=== PATIENT | female | born 1975 | race Caucasian/White ===

== ENCOUNTER 2016-06-28 11:32 | Emergency (ER) | payer MEDICAID ==
[2016-06-28] MEDS ORDERED: ONDANSETRON 4 MG TAB.RAPDIS PO ONE (12:16)
[2016-06-28] MEDS ORDERED: OXYCODONE-ACETAMINOPHEN 5-325 MG TABLET PO ONE (12:16)
--- NOTE | 2016-06-28 12:48 | ER Document Report ---
HPI - HPI Patient complains to provider of: left hand pain, dog bite Onset: Yesterday Onset/Duration: Sudden Severity: Severe Pain Level: 5 Context: [facility] for complaints of a dog bite. She reports her little dog bit her thumb last night when she was trying to break up a fight. The dogs shots up are to date. She reports she went to bed and this morning the thumbs really hurting. She reports she cannot move the thumb due to the pain. Reports her tetanus is up-to-date. Denies f/v/d. Patient drove herself here but will obtain a ride home. Reports tetanus up to date. Associated Symptoms: None Exacerbated by: Movement Relieved by: Denies Similar symptoms previously: No Recently seen / treated by doctor: No - REPRODUCTIVE Reproductive: DENIES: : - DERM Skin Color: Normal Past Medical History - General Information source: Patient Last Menstrual Period: june- depo - Social History Smoking Status: Current Every Day Smoker Cigarette use (# per day): Yes Frequency of alcohol use: None Drug Abuse: None Lives with: Family Family History: Reviewed & Not Pertinent, Hypertension Patient has suicidal ideation: No Patient has homicidal ideation: No - Past Medical History Cardiac Medical History: Reports: Hx Hypertension Renal/ Medical History: Reports: Hx Kidney Stones. Denies: Hx Peritoneal Dialysis Past Surgical History: Reports: Hx Cholecystectomy - Immunizations Immunizations up to date: Yes Hx Diphtheria, Pertussis, Tetanus Vaccination: Yes Vertical Provider Document - CONSTITUTIONAL Agree With Documented VS: Yes Exam Limitations: No Limitations General Appearance: WD/WN, Moderate Distress - crying - INFECTION CONTROL TRAVEL OUTSIDE OF THE [place] IN LAST 30 DAYS: No - HEENT HEENT: Atraumatic, Normocephalic - NECK Neck: Normal Inspection, Supple - RESPIRATORY Respiratory: Breath Sounds Normal, No Respiratory Distress O2 Sat by Pulse Oximetry: 95 - CARDIOVASCULAR Cardiovascular: Regular Rate - MUSCULOSKELETAL/EXTREMETIES Musculoskeletal/Extremeties: MAEW, Tender - left thumb ttp, +erythema - NEURO Level of Consciousness: Awake, Alert, Appropriate - DERM Integumentary: Warm, Dry Course - Re-evaluation Re-evalutation: 06/28/16 13:44 bite avis cleaned really well with surgical scrub brush and normal saline. Animal form completed. Patient instructed on Augmentin pain medication. Patient instructed on signs and symptoms of infection and patient was instructed to return here for any signs or symptoms of infection. She verbalized understanding to all instructions. - Vital Signs Vital signs: Temp Pulse Resp BP Pulse Ox 98.2 F 89 18 172/91 H 95 06/28/16 11:44 06/28/16 11:44 06/28/16 11:44 06/28/16 11:44 06/28/16 11:44 - Diagnostic Test Radiology reviewed: Image reviewed, Reports reviewed - Diagnostic report text EXAM DESCRIPTION: HAND LEFT 3 VIEWS COMPLETED DATE/TIME: 06/28/2016 12:42 pm REASON FOR STUDY: dog bite COMPARISON: None. EXAM PARAMETERS: NUMBER OF VIEWS: Three views. TECHNIQUE: AP, lateral and oblique radiographic images acquired of the left hand. LIMITATIONS: None. FINDINGS: MINERALIZATION: Normal. BONES: No acute fracture or dislocation. No worrisome bone lesions. JOINTS: No effusions. SOFT TISSUES: No soft tissue swelling. No foreign body. OTHER: There is a separate bony ossicle at the level of the ulnar styloid process presumably related to previous trauma TECHNICAL DOCUMENTATION: JOB ID : [id number] [place]- All Rights Reserved ORDER # : [id number] RAD/HAND LEFT 3 VIEWS IMPRESSION: NO RADIOGRAPHIC EVIDENCE OF ACUTE INJURY. Other findings as noted above Discharge - Discharge Clinical Impression: Dog bite, Elevated blood pressure reading Condition: Stable Disposition: HOME, SELF-CARE Instructions: Animal Bites ([facility]), Augmentin ([facility]), Antinausea Medication ([facility]) , Oral Narcotic Medication ([facility]) Additional Instructions: *You have been evaluated for a dog bite and elevated blood pressure reading *Keep your thumb clean, monitoring for signs and symptoms of infection such as redness swelling warmth discharge *Rest/Ice/Elevate your thumb *Follow up with a primary care provider for recheck within 1 week *Take medication as prescribed *Return to ED for any signs of infection, worsening condition, changes, needs, concerns Monitor your blood pressure. Your blood pressure was elevated today. This may be because you were anxious, in pain or because you need medication. It is important to follow up with your primary care provider for full evaluation. Prescriptions: Amoxicillin/Potassium Clav [Augmentin 875-125 Tablet] 1 each PO BID #20 tablet Oxycodone HCl/Acetaminophen [Percocet 5-325 mg Tablet] 1 - 2 tab PO ASDIR PRN # 20 tablet PRN Reason: Forms: Elevated Blood Pressure Referrals: ROLY STILL MD [Primary Care Provider] - Follow up in 3-5 days
[2016-06-28] MEDS ORDERED: AMOXICILLIN TR/POT CLAVULANATE 500-125 MG TAB PO ONE (13:44)
[2016-06-28] MEDS ORDERED: ONDANSETRON ODT 4 MG TAB (6 TAB/DSPK) PO PRN (13:49)
[2016-06-28 14:15] VITALS: BP 145/79
== END 2016-06-28 14:00 | disposition home or self-care (01) ==
LOC: ER 11:32
DX: S61.052A Open bite of left thumb without damage to nail, initial encounter (principal); W54.0XXA Bitten by dog, initial encounter; Y93.K9 Activity, other involving animal care; F17.210 Nicotine dependence, cigarettes, uncomplicated; I10 Essential (primary) hypertension
CPT/HCPCS: 99283; 73130; J3490; S0119

== ENCOUNTER 2018-03-27 19:03 | Emergency (ER) | payer OTHER, MEDICAID ==
[2018-03-27] MEDS ORDERED: SILVER SULFADIAZINE 1% CREAM 50 GM TP ONE (22:40)
--- NOTE | 2018-03-27 22:42 | ER Document Report ---
HPI - HPI Patient complains to provider of: burn right hand Time Seen by Provider: 03/27/18 22:03 Pain Level: 3 Context: 42-year-old [id number] female on Suboxone presents to the emergency department for a burn that occurred about 1915 this evening. She was at work and her hand accidentally submerged in some hot oil. She immediately removed it and started irrigating it. She states she does have full range of motion and she is able to feel her fingers. She endorses severe 5 out of 5 pain. - REPRODUCTIVE Reproductive: DENIES: : Past Medical History - Social History Smoking Status: Current Every Day Smoker Chew tobacco use (# tins/day): No Frequency of alcohol use: None Drug Abuse: None Family History: Reviewed & Not Pertinent, Hypertension Patient has suicidal ideation: No Patient has homicidal ideation: No - Past Medical History Cardiac Medical History: Reports: Hx Hypertension Renal/ Medical History: Reports: Hx Kidney Stones. Denies: Hx Peritoneal Dialysis Past Surgical History: Reports: Hx Cholecystectomy - Immunizations Immunizations up to date: Yes Hx Diphtheria, Pertussis, Tetanus Vaccination: Yes Vertical Provider Document - CONSTITUTIONAL Notes: PHYSICAL EXAMINATION: Reviewed vital signs and charting by RN GENERAL: Alert, interacts well. No acute distress. HEAD: Normocephalic, atraumatic. EYES: Pupils equal, round.. Extraocular movements intact. EXTREMITIES: Moves all 4 extremities spontaneously. No edema, No cyanosis. BACK: no cervical, thoracic, lumbar midline tenderness. No saddle anesthesia, normal distal neurovascular exam. NEUROLOGICAL: Alert and oriented x3. Normal speech. PSYCH: Normal affect, normal mood. SKIN: Right hand with blanching and surrounding erythema noncircumferential of right thumb, extends around about 180-270 agrees. Patient does have full range of motion. Exquisite tenderness to palpation. Normal distal neurovascular exam. No evidence of blistering at this point. Consistent with superficial partial-thickness burn. Covers her thumb part of her index finger and the the marisa eminence of her right palm - INFECTION CONTROL TRAVEL OUTSIDE OF THE [place] IN LAST 30 DAYS: No - DERM Integumentary: Warm, Dry Adult Front & Back Diagram: 1 - Superficial partial-thickness burn right hand. Noncircumferential approximately 270 degrees around. Dorsal and volar aspect blanched with surro unding erythema extending into the thenar eminence Course - Re-evaluation Re-evalutation: 03/27/18 22:41 Called [facility] burn center and spoke with attending Dr. Cooney, who recommended follow-up tomorrow morning in their clinic at [facility]. Plan is to apply Silvadene 1% cream and dressed the wound. Because patient is on Suboxone narcotic pain control will be an issue. 03/28/18 02:00 Discussed with patient the urgency and criticality of following up in [place] in the morning. I am concerned that patient will not follow-up. I told her that the burn could worsen with oil and the skin could tighten up and she is at risk for potential compartment syndrome. I clarified that she must follow-up with Dr. Cooney at [facility]. She was ambivalent about this and asked if she what happened if she did not. I told her that the results could be catastrophic. Patient understands the risks upon discharge - Vital Signs Vital signs: Temp Pulse Resp BP Pulse Ox 98.0 F 91 20 138/81 H 100 03/27/18 20:13 03/27/18 20:13 03/27/18 20:13 03/27/18 20:13 03/27/18 20:13 Discharge - Discharge Clinical Impression: Burn Condition: Good Disposition: HOME, SELF-CARE Instructions: Jarvis ([facility]), Silvadene Cream ([facility]) Additional Instructions: You were seen in the emergency department this evening for a burn on your right hand. It is very important that you follow-up at [facility] burn clinic tomorrow. Their hours are 8 AM to 5 PM. Their phone number is [phone]. I spoke with Dr. Cooney the burn doctor and he wants to see you there in the morning. Please go to the main hospital at [facility], please allow at least 30 minutes for parking due to construction, and checking with the supervisor front and they will guide you to the burn clinic. If you are unable to move your hand to make a fist, your fingers turn blue or black, you are unable to move your risk please immediately return to the emergency department. Forms: Return to School, Return to Work Referrals: ROLY STILL MD [ACTIVE STAFF] - Follow up as needed
[2018-03-27] MEDS ORDERED: SILVER SULFADIAZINE 1% CREAM 400 GM ONE (23:18)
[2018-03-28 00:38] VITALS: BP 145/80
== END 2018-03-28 00:40 | disposition home or self-care (01) ==
LOC: ER 19:03
DX: T23.001A Burn of unspecified degree of right hand, unspecified site, initial encounter (principal); X10.2XXA Contact with fats and cooking oils, initial encounter; Z79.899 Other long term (current) drug therapy; F17.200 Nicotine dependence, unspecified, uncomplicated; I10 Essential (primary) hypertension
CPT/HCPCS: 99283; J3490

== ENCOUNTER → 2018-05-02 | Outpatient (CLI) | payer MEDICAID ==
--- NOTE | 2018-05-03 09:26 | RADIOLOGY REPORT (SQ) ---
EXAM DESCRIPTION: WRIST RIGHT 3 VIEWS COMPLETED DATE/TIME: 05/02/2018 6:42 pm REASON FOR STUDY: M25.531 PAIN IN RIGHT WRIST M25.531 PAIN IN RIGHT WRIST COMPARISON: None. NUMBER OF VIEWS: Three views. TECHNIQUE: AP, lateral, and oblique radiographic images acquired of the right wrist. LIMITATIONS: None. FINDINGS: MINERALIZATION: Normal. BONES: No acute fracture or dislocation. No worrisome bone lesions. Negative ulnar variance. SOFT TISSUES: No soft tissue swelling. No foreign body. OTHER: No other significant finding. IMPRESSION: 1. NEGATIVE STUDY OF THE RIGHT WRIST. TECHNICAL DOCUMENTATION: JOB ID: [id number] [employer]- All Rights Reserved Reading location - IP/workstation name: [email or web address]
== END ==
LOC: RAD 18:26
PROVIDERS: ATTEND Nurse Practitioner Acute Care
DX: M25.531 Pain in right wrist (principal)

== ENCOUNTER 2019-10-16 19:24 | Inpatient (IN) | payer MEDICAID ==
[2019-10-16] MEDS ORDERED: ACETAMINOPHEN 325 MG TABLET PO ONE (20:04)
--- NOTE | 2019-10-16 20:04 | ER Document Report ---
ED Medical Screen (RME) - General Chief Complaint: Leg Pain Stated Complaint: LEG PAIN/VAGINAL PROBLEM Time Seen by Provider: 10/16/19 19:54 Primary Care Provider: HASNEL ALVAREZ DO [Primary Care Provider] - Follow up as needed Mode of Arrival: Wheelchair Information source: Patient Notes: 44-year-old female presented to ED for inflamed red swollen right labia thigh. She states last she had a shaved her private area and she had a little "help" that she squeezed like she always did. She states by Sunday it got much worse so she went to the [facility] and was given a Rocephin injection and an oral antibiotic and a salve to rub on the area to help her come to ahead. She states that since then the pain and swelling and redness has tremendously inc reased and the redness has spread down her right thigh. She states she has been having fevers and chills since then. She does have a temperature of 100.6 with tachycardia and chills. She states that they did do some kind of no swab while she was at the doctor's office but she is not sure what that was for and she was not told that she had self quarantining. She was told to come back to the doc tor's office on Sunday to have the abscess lanced. She states the pain got so bad she came to the emergency room. She states she does have a history of high blood pressure and fatty liver. And she smokes a pack a day. We will start a septic work-up and she will need to be in a person under investigation room. The patient was evaluated during the global Covid 19 pandemic, and that diagnosis was suspected/considered upon their initial presentation. Their evaluation, treatment and testing was consistent with current guidelines for patients who present with complaints or symptoms that may be related to Covid 19. I have greeted and performed a rapid initial assessment of this patient. A comprehensive ED assessment and evaluation of the patient, analysis of test results and completion of medical decision making process will be conducted by an additional ED providers. TRAVEL OUTSIDE OF THE U[place] IN LAST 30 DAYS: No - Related Data Allergies/Adverse Reactions: No Known Allergies Allergy (Verified 03/27/18 19:06) Past Medical History - Past Medical History Cardiac Medical History: Reports: Hx Hypertension Renal/ Medical History: Reports: Hx Kidney Stones. Denies: Hx Peritoneal Dialysis Past Surgical History: Reports: Hx Cholecystectomy - Immunizations Immunizations up to date: Yes Hx Diphtheria, Pertussis, Tetanus Vaccination: Yes Physical Exam - Vital signs Vitals: Temp Pulse Resp BP Pulse Ox 100.6 F H 116 H 20 133/79 H 98 10/16/19 19:32 10/16/19 19:32 10/16/19 19:32 10/16/19 19:32 10/16/19 19:32 Course - Vital Signs Vital signs: Temp Pulse Resp BP Pulse Ox 100.6 F H 116 H 20 133/79 H 98 10/16/19 19:32 10/16/19 19:32 10/16/19 19:32 10/16/19 19:32 10/16/19 19:32 Doctor's Discharge - Discharge Referrals: HANSEL ALVAREZ DO [Primary Care Provider] - Follow up as needed
[2019-10-16] MEDS ORDERED: CLINDAMYCIN 900 MG/D5W RTU 900 MG/50 ML RTUPB IV ONE (20:10)
[2019-10-16] MEDS ORDERED: NICOTINE 21 MG/24 HR PATCH.TD24 TD ONE (20:12)
--- NOTE | 2019-10-16 20:51 | RADIOLOGY REPORT (SQ) ---
EXAM DESCRIPTION: XR CHEST 1 VIEW COMPLETED DATE/TME: 10/16/2019 20:04 CLINICAL HISTORY: 44 years, Female, Fever 100.6 tachycardia COMPARISON: Prior study from 01/14/2016 NUMBER OF VIEWS: One TECHNIQUE: Single frontal view of the chest was obtained LIMITATIONS: None. FINDINGS: Cardiac and mediastinal contours are stable. Lungs are clear. No pleural effusion or pneumothorax. IMPRESSION: No acute disease. copyright 2010 [employer]- All Rights Reserved
[2019-10-16 20:57] LABS: ABSOLUTE EOSINOPHILS # (AUTO) 0.1 10^3/uL (0.0-0.6); ABSOLUTE LYMPHOCYTES (AUTO) 0.6 10^3/uL (0.5-4.7); ABSOLUTE MONOCYTES (AUTO) 0.6 10^3/uL (0.1-1.4); ABSOLUTE NEUT (AUTO) 9.1 10^3/uL (1.7-8.2); BASOPHILS % (AUTO) 0.2 % (0-2); EOSINOPHILS % (AUTO) 0.7 % (0-6); HEMATOCRIT 29.9 % (36.0-47.0); HEMOGLOBIN 10.1 g/dL (12.0-15.5); LYMPHOCYTES % (AUTO) 6.1 % (13-45); MEAN CORPUSCULAR HEMOGLOBIN 27.1 pg (27.0-33.4); MEAN CORPUSCULAR HGB CONC 33.6 g/dL (32.0-36.0); MEAN CORPUSCULAR VOLUME 81 fl (80-97); PLATELET COUNT 268 10^3/uL (150-450); RED BLOOD COUNT 3.71 10^6/uL (3.72-5.28); RED CELL DISTRIBUTION WIDTH 16.9 % (11.5-14.0); TOTAL CELLS COUNTED % (AUTO) 100 %; WHITE BLOOD COUNT 10.5 10^3/uL (4.0-10.5)
[2019-10-16 20:58] LABS: VENOUS BLOOD BASE EXCESS 1.9 mmol/L; VENOUS BLOOD PCO2 49.2 mmHg (35-63); VENOUS BLOOD PH 7.37 (7.30-7.42)
[2019-10-16 21:08] LABS: INTERNATIONAL RATION (INR) 1.17; PROTHROMBIN TIME 15.1 SEC (11.4-15.4)
[2019-10-16] MEDS ORDERED: CEFEPIME 2 GM/D5W RTU 2 GM/50 ML RTUPB IV ONE (21:11)
[2019-10-16] MEDS ORDERED: VANCOMYCIN HCL INJ 1000 MG VIAL IV ONE (21:12)
[2019-10-16] MEDS: RINGERS SOLUTION,LACTATED 1,000 ML IV PRN ×2 (21:18→23:49)
--- NOTE | 2019-10-16 21:18 | ER Document Report ---
ED General - General Chief Complaint: Skin Problem Stated Complaint: LEG PAIN/VAGINAL PROBLEM Time Seen by Provider: 10/16/19 19:54 Primary Care Provider: HANSEL ALVAREZ DO [NO LOCAL MD] - Follow up as needed Mode of Arrival: Wheelchair TRAVEL OUTSIDE OF THE [place]. IN LAST 30 DAYS: No - HPI Notes: Patient is a 44-year-old female presents emergency department for evaluation of a swollen and erythematous area on the right thigh. She states that 1 week ago she developed what she thought was an ingrown hair. It started to grow. She went to the [facility], they gave her a shot of Rocephin, started her on Bactrim, and gave her a medicine to rub on top of it. She was post come back to have it lanced. Since then it is continued to grow. It is become more erythematous. She developed fever over the last 48 hours. She is not eating or drinking very much fluids. She has nausea but no emesis. Normal urination. She states the pain is a 5 out of 5, constant throbbing and aching pain. - Related Data Allergies/Adverse Reactions: No Known Allergies Allergy (Verified 03/27/18 19:06) Home Medications: gabapentin Past Medical History - General Information source: Patient - Social History Smoking Status: Current Every Day Smoker Chew tobacco use (# tins/day): No Frequency of alcohol use: None Drug Abuse: None Family History: Reviewed & Not Pertinent, Hypertension - Past Medical History Cardiac Medical History: Reports: Hx Hypertension Renal/ Medical History: Reports: Hx Kidney Stones. Denies: Hx Peritoneal Dialysis Past Surgical History: Reports: Hx Cholecystectomy - Immunizations Immunizations up to date: Yes Hx Diphtheria, Pertussis, Tetanus Vaccination: Yes Review of Systems - Review of Systems Constitutional: See HPI EENT: No symptoms reported Cardiovascular: No symptoms reported Respiratory: No symptoms reported Gastrointestinal: See HPI Genitourinary: No symptoms reported Female Genitourinary: No symptoms reported Musculoskeletal: No symptoms reported Skin: See HPI Neurological/Psychological: No symptoms reported Physical Exam - Vital signs Vitals: Temp Pulse Resp BP Pulse Ox 100.6 F H 116 H 20 133/79 H 98 10/16/19 19:32 10/16/19 19:32 10/16/19 19:32 10/16/19 19:32 10/16/19 19:32 - Notes Notes: Is a 44-year-old female who appears her stated age, mild amount of distress secondary to pain. Vital signs reviewed, please refer to chart. Head is normocephalic, atraumatic. Pupils equal round, reactive to light. Neck is supple without meningismus. Heart is regular rate and rhythm. Lungs are clear to auscultation bilaterally. Abdomen is soft, nontender, normoactive bowel sounds throughout. Extremities without cyanosis, clubbing. Posterior calves are nontender. Peripheral pulses are equal. Examination of the right proximal thigh yields a raised and erythematous area, consistent with inflammation versus abscess, measuring approximately 25 x 10 cm in the right proximal thigh. There is deroofed bullae in the middle of this, no royer purulence. There is a much larger area of surrounding erythema, not quite circumferential, which tracks approximately 5 cm inferior to the raised area and 8 to 10 cm medial and lateral. Course - Re-evaluation Re-evalutation: 10/16/19 21:17 Patient presents to the emergency department for evaluation. She has no known medical history, but is a smoker, obese. She is febrile and tachycardic. She was triaged, had orders placed through the front, including a septic work-up. I did change her antibiotic to cefepime and vancomycin. She had already failed outpatient treatment. I am concerned about the possibility of necrotizing fasciitis or a very large abscess that may require OR cleanout. Patient's vital signs are currently stable, we will continue to monitor. 10/16/19 23:[address] scan failed to show any abscess, but extensive soft tissue swelling, all consistent with her cellulitis. The patient still remains borderline tachycardic with a heart rate in the 100 range. Her temperature has improved. She is given cefepime and vancomycin, 3 L of LR. I spoke with Dr. Brown, he will admit the patient for further care. - Vital Signs Vital signs: Temp Pulse Resp BP Pulse Ox 99 F 116 H 20 133/79 H 95 10/16/19 22:13 10/16/19 19:32 10/16/19 19:32 10/16/19 19:32 10/16/19 21:00 - Laboratory Result Diagrams: 10/16/19 20:33 10/16/19 20:33 Laboratory results interpreted by me: 10/16/19 10/16/19 10/16/19 20:33 20:33 20:33 RBC 3.71 L Hgb 10.1 L Hct 29.9 L RDW 16.9 H Lymph % (Auto) 6.1 L Absolute Neuts (auto) 9.1 H Seg Neutrophils % 87.0 H Sodium 135.7 L Potassium 3.4 L Glucose 174 H Lactic Acid 2.2 H AST 136 H ALT 70 H - Diagnostic Test Radiology reviewed: Reports reviewed Radiology results interpreted by me: 10/16/19 23:02 Chest X-Ray 10/16/19 20:04 IMPRESSION: No acute disease. copyright 2010 [employer]- All Rights Reserved Lower Extremity CT 10/16/19 21:12 IMPRESSION: 1. Diffuse soft tissue swelling overlying the right femur but without evidence of abscess or foreign body. 2. No acute fracture or osteomyelitis of the right femur. Discharge - Discharge Clinical Impression: Cellulitis of right lower extremity Condition: Stable Disposition: ADMITTED INPATIENT Admitting Provider: Stephanie (Hospitalist) Unit Admitted: Medical Floor Referrals: HANSEL ALVAREZ DO [NO LOCAL MD] - Follow up as needed
[2019-10-16 21:22] LABS: ALBUMIN 3.6 g/dL (3.5-5.0); ALKALINE PHOSPHATASE 104 U/L (38-126); ANION GAP 12 (5-19); ASPARTATE AMINO TRANSFERASE 136 U/L (14-36); BILIRUBIN,DIRECT 0.3 mg/dL (0.0-0.4); BILIRUBIN,TOTAL 0.4 mg/dL (0.2-1.3); BLOOD UREA NITROGEN 19 mg/dL (7-20); CALCIUM 8.7 mg/dL (8.4-10.2); CARBON DIOXIDE 26 mmol/L (22-30); CHLORIDE 98 mmol/L (98-107); GLUCOSE 174 mg/dL (75-110); POTASSIUM 3.4 mmol/L (3.6-5.0); TOTAL PROTEIN 6.8 g/dL (6.3-8.2)
[2019-10-16] MEDS ORDERED: MORPHINE SULFATE 10 MG/ML INJ IV ONE (21:33)
[2019-10-16] MEDS ORDERED: ONDANSETRON HCL INJ/PF 4 MG/2 ML SDV IV ONE (21:33)
[2019-10-16] MEDS ORDERED: RINGERS SOLUTION,LACTATED 1,000 ML IV ONE (21:53)
--- NOTE | 2019-10-16 22:47 | RADIOLOGY REPORT (SQ) ---
CT LOWER EXTREMITY WITH IV CONTRAST HISTORY: Proximal thigh cellulitis. Evaluate for abscess COMPARISON: None. TECHNIQUE: CT scan of the right femur was performed with IV contrast. This exam was performed according to our departmental dose-optimization program, which includes automated exposure control, adjustment of the mA and/or kV according to patient size and/or use of iterative reconstruction technique. FINDINGS: There is diffuse subcutaneous edema overlying the soft tissues of the right femur. No focal fluid collection or foreign body is identified. There are prominent right inguinal and right medial thigh lymph nodes, likely reactive. No acute fracture or dislocation is seen. There is no cortical erosion or periosteal reaction to suggest acute osteomyelitis. The muscles and tendons are grossly intact. No acute intrapelvic findings are identified. IMPRESSION: 1. Diffuse soft tissue swelling overlying the right femur but without evidence of abscess or foreign body. 2. No acute fracture or osteomyelitis of the right femur.
[2019-10-16] MEDS ORDERED: ONDANSETRON HCL INJ/PF 4 MG/2 ML SDV IV PRN (23:15)
[2019-10-16] MEDS ORDERED: OXYCODONE-ACETAMINOPHEN 5-325 MG TABLET PO PRN (23:15)
[2019-10-16] MEDS ORDERED: VANCOMYCIN HCL 0 MG in DEXTROSE 5%-WATER 250 ML IV NR (23:15)
[2019-10-16] MEDS ORDERED: ACETAMINOPHEN 325 MG TABLET PO PRN (23:15)
[2019-10-16] MEDS ORDERED: IPRATROPIUM/ALBUTEROL 0.5-2.5 MG/3 ML AMPUL NEB PRN (23:15)
[2019-10-16] MEDS ORDERED: PROMETHAZINE HCL INJ 25 MG/1 ML VIAL IV PRN (23:15)
[2019-10-16] MEDS ORDERED: FAMOTIDINE 20 MG TABLET PO ONE (23:30)
[2019-10-16 23:51] LABS: C-REACTIVE PROTEIN 385.3 mg/L (<10.0)
--- NOTE | 2019-10-16 23:52 | PDOC H&P ---
History of Present Illness Admission Date/PCP: 10/16/19 23:16 ILEANA HERNANDEZ PA-C History of Present Illness: JIA CHAN is a 44 year old female with no significant past medical history except for tobacco abuse anxiety and obesity presenting to ED complaining of left lower extremity erythema and swelling. Last surgery patient noticed what she thought was an ingrown hair on the anterior surface of her proximal medial thigh she "missed with it" and the following day noted worsening erythema and swelling, she reported to [facility] where she was given an IM antibiotic shot, was sent home on oral antibiotics, and symptoms of antibiotic lotion, patient noted that her leg was getting worse and she was developing fever nausea, hence she presented to ED. Pain explained as burning, 5/5, constant, mild relieved with ibuprofen and Tylenol at home. Patient denies any history of diabetes, IV drug abuse, trauma, previous abscess or cellulitis. 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 In the ED she was noted to febrile, tachycardic, with elevated lactic acid and CT did not show any osteomyelitis, gas formation or abscess. Hospitalist was consulted for admission. Past Medical History Cardiac Medical History: Reports: Hypertension Past Surgical History Past Surgical History: Reports: Cholecystectomy Social History Smoking Status: Current Every Day Smoker Electronic Cigarette use?: No Family History Family History: Reviewed & Not Pertinent, Hypertension Parental Family History Reviewed: Yes Children Family History Reviewed: Yes Sibling(s) Family History Reviewed.: Yes Medication/Allergy Home Medications: Atenolol [Tenormin 50 mg Tablet] 50 mg PO BID 10/14/13 Hydrocodone Bit/Acetaminophen [Hydrocodon-Acetaminophen 5-325] 1 each PO Q4 #20 tablet 10/14/13 Prednisone [Deltasone 10 mg Tablet] 10 mg PO ASDIR PRN #21 tablet 10/14/13 Ibuprofen [Motrin 800 Mg Tablet] 800 mg PO Q6H #20 tablet 11/04/13 Tramadol HCl [Ultram 50 mg Tablet] 50 mg PO ASDIR PRN #30 tablet 11/04/13 Doxycycline Hyclate 100 mg PO BID #20 capsule 03/13/15 Hydrocodone/Acetaminophen [Julian 5-325 Tablet] 1 each PO Q4 PRN #15 tablet 03/13 Azithromycin 250 mg PO ASDIR #6 tablet 07/28/15 Prednisone [Deltasone 10 mg Tablet] 10 mg PO ASDIR PRN #21 tablet 07/28/15 Oxycodone HCl/Acetaminophen [Percocet 5-325 mg Tablet] 1 - 2 tab PO Q4H PRN #15 tablet 10/22/15 Benzonatate [Tessalon Perles 100 mg Capsule] 100 mg PO ASDIR PRN #40 capsule 01/14/16 Fluticasone Propionate [Flonase Nasal Hudson 50 Mcg/Hudson 16 gm] 2 sprays NASL Q12 #1 inhaler 01/14/16 Amoxicillin/Potassium Clav [Augmentin 875-125 Tablet] 1 each PO BID #20 tablet 06/28/16 Oxycodone HCl/Acetaminophen [Percocet 5-325 mg Tablet] 1 - 2 tab PO ASDIR PRN #20 tablet 06/28/16 Allergies/Adverse Reactions: No Known Allergies Allergy (Verified 03/27/18 19:06) Review of Systems Review of Systems: as per hpi Physical Exam Vital Signs: Temp Pulse Resp BP Pulse Ox 99 F 116 H 20 133/79 H 95 10/16/19 22:13 10/16/19 19:32 10/16/19 19:32 10/16/19 19:32 10/16/19 21:00 Intake & Output 10/15/19 10/16/19 10/17/19 06:59 06:59 06:59 Intake Total 50 Balance 50 Weight 97.3 kg General appearance: PRESENT: no acute distress, obese, well-developed, well- nourished Head exam: PRESENT: atraumatic, normocephalic Neck exam: ABSENT: carotid bruit, JVD, lymphadenopathy, thyromegaly Respiratory exam: PRESENT: clear to auscultation shakira. ABSENT: rales, rhonchi, wheezes GI/Abdominal exam: PRESENT: normal bowel sounds, soft. ABSENT: distended, guarding, mass, organolmegaly, rebound, tenderness Extremities exam: PRESENT: full ROM. ABSENT: calf tenderness, clubbing, pedal edema Musculoskeletal exam: PRESENT: tenderness, other - Right lower extremity diffuse erythema and tenderness extending distally to mid thigh, not crossing the inguinal ligament, several shallow ulcers below the inguinal ring, fluctuant mass about 4 x 10 cm. Neurovascularly intact. Neurological exam: PRESENT: alert, awake, oriented to person, oriented to place, oriented to time, oriented to situation, CN II-XII grossly intact. ABSENT: motor sensory deficit Results Laboratory Results: 10/16/19 20:33 10/16/19 20:33 10/16/19 10/16/19 10/16/19 20:33 20:33 20:33 WBC 10.5 RBC 3.71 L Hgb 10.1 L Hct 29.9 L MCV 81 MCH 27.1 MCHC 33.6 RDW 16.9 H Plt Count 268 Seg Neutrophils % 87.0 H VBG pH VBG pCO2 VBG HCO3 VBG Base Excess Sodium 135.7 L Potassium 3.4 L Chloride 98 Carbon Dioxide 26 Anion Gap 12 BUN 19 Creatinine 0.77 Est GFR ( Amer) > 60 Glucose 174 H Lactic Acid Calcium 8.7 Total Bilirubin 0.4 AST 136 H Alkaline Phosphatase 104 Total Protein 6.8 Albumin 3.6 Serum HCG, Qual NEGATIVE 10/16/19 10/16/19 20:33 20:33 WBC RBC Hgb Hct MCV MCH MCHC RDW Plt Count Seg Neutrophils % VBG pH 7.37 VBG pCO2 49.2 VBG HCO3 28.0 VBG Base Excess 1.9 Sodium Potassium Chloride Carbon Dioxide Anion Gap BUN Creatinine Est GFR ( Amer) Glucose Lactic Acid 2.2 H Calcium Total Bilirubin AST Alkaline Phosphatase Total Protein Albumin Serum HCG, Qual Impressions: Chest X-Ray 10/16/19 20:04 IMPRESSION: No acute disease. copyright 2010 [employer]- All Rights Reserved Lower Extremity CT 10/16/19 21:12 IMPRESSION: 1. Diffuse soft tissue swelling overlying the right femur but without evidence of abscess or foreign body. 2. No acute fracture or osteomyelitis of the right femur. Assessment and Plan - Diagnosis (1) Cellulitis of right lower extremity Is this a current diagnosis for this admission?: Yes Plan: Right proximal lower extremity diffuse cellulitis and possibly abscess based on physical examination. Failed outpatient antibiotic therapy. Denies any history of trauma, IV drug abuse or diabetes. Given history of obesity diabetes is a possibility. CT right lower extremity negative for any gas collection, osteomyelitis or abscess. We will start on empiric IV antibiotics blood culture, wound culture, wound care, if no improvement will consult surgery for possible I&D. (2) Obesity Qualifiers: Body mass index: BMI 34.0-34.9 Is this a current diagnosis for this admission?: Yes Plan: BMI 34.6. Will obtain TSH, hemoglobin A1c and lipid panel. Diet and lifestyle modification recommended. (3) Anxiety Is this a current diagnosis for this admission?: Yes Plan: Takes Xanax at home. Resume home meds. Outpatient PCP follow-up. (4) Tobacco abuse Is this a current diagnosis for this admission?: Yes Plan: Counseled on quitting. NicoDerm patch will be provided. - Time Time Spent with patient: 25-34 minutes Smoking Cessation Education: 3 to 10 minutes Medications reviewed and adjusted accordingly: Yes Anticipated Discharge Disposition: Home, Self Care Anticipated Discharge Timeframe: within 48 hours
[2019-10-16] MEDS ORDERED: METOPROLOL TARTRATE PF/INJ 5 MG/5 ML SDV IV PRN (23:58)
[2019-10-16] MEDS ORDERED: HYDRALAZINE HCL INJ/PF 20 MG/1 ML SDV IV PRN (23:58)
[2019-10-17] MEDS: ALPRAZOLAM 0.25 MG TABLET PO PRN ×2 (02:58→14:17)
[2019-10-17] MEDS: OXYCODONE-ACETAMINOPHEN 5-325 MG TABLET PO PRN ×3 (02:58→20:09)
[2019-10-17 03:17] LABS: HEMATOCRIT 26.6 % (36.0-47.0); HEMOGLOBIN 8.9 g/dL (12.0-15.5); MEAN CORPUSCULAR HEMOGLOBIN 27.1 pg (27.0-33.4); MEAN CORPUSCULAR HGB CONC 33.5 g/dL (32.0-36.0); MEAN CORPUSCULAR VOLUME 81 fl (80-97); PLATELET COUNT 233 10^3/uL (150-450); RED CELL DISTRIBUTION WIDTH 16.3 % (11.5-14.0); WHITE BLOOD COUNT 8.7 10^3/uL (4.0-10.5)
[2019-10-17 03:21] LABS: INTERNATIONAL RATION (INR) 1.17; PROTHROMBIN TIME 15.1 SEC (11.4-15.4)
[2019-10-17 03:36] LABS: ALBUMIN 3.1 g/dL (3.5-5.0); ALKALINE PHOSPHATASE 85 U/L (38-126); ANION GAP 8 (5-19); ASPARTATE AMINO TRANSFERASE 106 U/L (14-36); BILIRUBIN,DIRECT 0.3 mg/dL (0.0-0.4); BILIRUBIN,TOTAL 0.4 mg/dL (0.2-1.3); BLOOD UREA NITROGEN 20 mg/dL (7-20); CALCIUM 8.1 mg/dL (8.4-10.2); CARBON DIOXIDE 26 mmol/L (22-30); CHLORIDE 100 mmol/L (98-107); GLUCOSE 127 mg/dL (75-110); POTASSIUM 3.5 mmol/L (3.6-5.0); TOTAL PROTEIN 5.9 g/dL (6.3-8.2)
[2019-10-17 03:37] LABS: APPEARANCE,URINE CLEAR; BILIRUBIN,URINE NEGATIVE (NEGATIVE); COLOR,URINE YELLOW; GLUCOSE, URINE NEGATIVE (NEGATIVE); KETONES,URINE NEGATIVE (NEGATIVE); PROTEIN,URINE NEGATIVE (NEGATIVE); URINE SPECIFIC GRAVITY 1.019; UROBILINOGEN,URINE NEGATIVE mg/dL (<2.0)
[2019-10-17 03:45] LABS: RBC,URINE RARE /HPF
[2019-10-17 03:46] LABS: BACTERIA,URINE TRACE /HPF
[2019-10-17 03:50] LABS: FREE T3 2.65 pg/mL (2.77-5.27); FREE T4 (FREE THYROXINE) 0.94 ng/dL (0.78-2.19)
[2019-10-17 04:03] LABS: THYROID STIMULATING HORMONE 4.67 uIU/mL (0.47-4.68)
[2019-10-17] MEDS ORDERED: POTASSIUM CHLORIDE 10 MEQ TABLET.ER PO ONE (04:40)
[2019-10-17] MEDS: HEPARIN SOD (PORCINE) 5,000 UNIT/ML 1 ML VIAL SUBCUT SCH ×3 (05:42→22:11)
[2019-10-17] MEDS: FAMOTIDINE 20 MG TABLET PO SCH ×2 (09:09→22:10)
[2019-10-17] MEDS: CEFEPIME 1 GM/D5W RTU 1 GM/50 ML RTUPB IV SCH ×2 (09:10→22:11)
--- NOTE | 2019-10-17 09:31 | PDOC PROGRESS REPORT ---
Subjective Progress Note for:: 10/17/19 Subjective:: 44 year old female with no significant past medical history except for tobacco abuse anxiety and obesity presenting to ED complaining of left lower extremity erythema and swelling. Last surgery patient noticed what she thought was an ingrown hair on the anterior surface of her proximal medial thigh she "missed with it" and the following day noted worsening erythema and swelling, she reported to [facility] where she was given an IM antibiotic shot, was sent home o n oral antibiotics, and symptoms of antibiotic lotion, patient noted that her leg was getting worse and she was developing fever nausea, hence she presented to ED. Pain explained as burning, 5/5, constant, mild relieved with ibuprofen and Tylenol at home. Patient denies any history of diabetes, IV drug abuse, trauma, previous abscess or cellulitis. 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 In the ED she was noted to febrile, tachycardic, with elevated lactic acid and CT did not show any osteomyelitis, gas formation or abscess. Hospitalist was consulted for admission. 10/17/1934-64-gkkg-old female admitted with cellulitis of the right thigh. And is on cefepime, vancomycin. Vancomycin dose will be adjusted by the pharmacy. Patient is afebrile. WBC count within normal limits. Reason For Visit: CELLULITIS Physical Exam Vital Signs: Temp Pulse Resp BP Pulse Ox 97.9 F 78 17 119/60 100 10/17/19 09:16 10/17/19 07:53 10/17/19 07:53 10/17/19 07:53 10/17/19 07:53 Intake & Output 10/16/19 10/17/19 10/18/19 06:59 06:59 06:59 Intake Total 2170 Output Total 300 Balance 1870 Weight 98.9 kg General appearance: PRESENT: no acute distress, cooperative, obese Head exam: PRESENT: atraumatic Eye exam: PRESENT: PERRLA Ear exam: PRESENT: normal external ear exam Neck exam: ABSENT: carotid bruit, JVD, lymphadenopathy, thyromegaly Respiratory exam: PRESENT: clear to auscultation shakira. ABSENT: rales, rhonchi, wheezes Cardiovascular exam: PRESENT: tachycardia. ABSENT: diastolic murmur, rubs, systolic murmur GI/Abdominal exam: PRESENT: normal bowel sounds, soft. ABSENT: distended, guarding, mass, organolmegaly, rebound, tenderness Rectal exam: PRESENT: deferred Extremities exam: PRESENT: full ROM. ABSENT: calf tenderness, clubbing, pedal e nohemi Neurological exam: PRESENT: alert, awake, oriented to person, oriented to place, oriented to time, oriented to situation, CN II-XII grossly intact. ABSENT: motor sensory deficit Psychiatric exam: PRESENT: appropriate affect, normal mood. ABSENT: homicidal ideation, suicidal ideation Skin exam: PRESENT: other - Redness erythema and swelling present in the right medial aspect of the thigh. Results Laboratory Results: 10/17/19 03:08 10/17/19 03:08 10/16/19 10/16/19 10/16/19 20:33 20:33 20:33 WBC 10.5 RBC 3.71 L Hgb 10.1 L Hct 29.9 L MCV 81 MCH 27.1 MCHC 33.6 RDW 16.9 H Plt Count 268 Seg Neutrophils % 87.0 H VBG pH VBG pCO2 VBG HCO3 VBG Base Excess Sodium 135.7 L Potassium 3.4 L Chloride 98 Carbon Dioxide 26 Anion Gap 12 BUN 19 Creatinine 0.77 Est GFR ( Amer) > 60 Glucose 174 H Lactic Acid Calcium 8.7 Total Bilirubin 0.4 AST 136 H Alkaline Phosphatase 104 C-Reactive Protein Total Protein 6.8 Albumin 3.6 TSH Free T4 Free T3 pg/mL Serum HCG, Qual NEGATIVE Urine Color Urine Appearance Urine pH Ur Specific [place] Urine Protein Urine Glucose (UA) Urine Ketones Urine Blood Ur Squamous Epith Cells 10/16/19 10/16/19 10/16/19 20:33 20:33 20:33 WBC RBC Hgb Hct MCV MCH MCHC RDW Plt Count Seg Neutrophils % VBG pH 7.37 VBG pCO2 49.2 VBG HCO3 28.0 VBG Base Excess 1.9 Sodium Potassium Chloride Carbon Dioxide Anion Gap BUN Creatinine Est GFR ( Amer) Glucose Lactic Acid 2.2 H Calcium Total Bilirubin AST Alkaline Phosphatase C-Reactive Protein 385.3 H Total Protein Albumin TSH Free T4 Free T3 pg/mL Serum HCG, Qual Urine Color Urine Appearance Urine pH Ur Specific [place] Urine Protein Urine Glucose (UA) Urine Ketones Urine Blood Ur Squamous Epith Cells 10/16/19 10/17/19 10/17/19 23:45 03:08 03:08 WBC 8.7 RBC 3.30 L Hgb 8.9 L Hct 26.6 L MCV 81 MCH 27.1 MCHC 33.5 RDW 16.3 H Plt Count 233 Seg Neutrophils % VBG pH VBG pCO2 VBG HCO3 VBG Base Excess Sodium Potassium Chloride Carbon Dioxide Anion Gap BUN Creatinine Est GFR ( Amer) Glucose Lactic Acid 0.8 1.2 Calcium Total Bilirubin AST Alkaline Phosphatase C-Reactive Protein Total Protein Albumin TSH Free T4 Free T3 pg/mL Serum HCG, Qual Urine Color Urine Appearance Urine pH Ur Specific [place] Urine Protein Urine Glucose (UA) Urine Ketones Urine Blood Ur Squamous Epith Cells 10/17/19 10/17/19 10/17/19 03:08 03:08 03:18 WBC RBC Hgb Hct MCV MCH MCHC RDW Plt Count Seg Neutrophils % VBG pH VBG pCO2 VBG HCO3 VBG Base Excess Sodium 134.3 L Potassium 3.5 L Chloride 100 Carbon Dioxide 26 Anion Gap 8 BUN 20 Creatinine 0.85 Est GFR ( Amer) > 60 Glucose 127 H Lactic Acid Calcium 8.1 L Total Bilirubin 0.4 AST 106 H Alkaline Phosphatase 85 C-Reactive Protein Total Protein 5.9 L Albumin 3.1 L TSH 4.67 Free T4 0.94 Free T3 pg/mL 2.65 L Serum HCG, Qual Urine Color YELLOW Urine Appearance CLEAR Urine pH 7.0 Ur Specific [place] 1.019 Urine Protein NEGATIVE Urine Glucose (UA) NEGATIVE Urine Ketones NEGATIVE Urine Blood NEGATIVE Ur Squamous Epith Cells FEW 10/16/19 20:33 Creatine Kinase 528 H Impressions: Chest X-Ray 10/16/19 20:04 IMPRESSION: No acute disease. copyright 2011 [employer]- All Rights Reserved Lower Extremity CT 10/16/19 21:12 IMPRESSION: 1. Diffuse soft tissue swelling overlying the right femur but without evidence of abscess or foreign body. 2. No acute fracture or osteomyelitis of the right femur. Assessment and Plan - Diagnosis (1) Cellulitis of right lower extremity Is this a current diagnosis for this admission?: Yes Plan: Right proximal lower extremity diffuse cellulitis and possibly abscess based on physical examination. Failed outpatient antibiotic therapy. Denies any history of trauma, IV drug abuse or diabetes. Given history of obesity diabetes is a possibility. CT right lower extremity negative for any gas collection, osteomyelitis or abscess. We will start on empiric IV antibiotics blood culture, wound culture, wound care, if no improvement will consult surgery for possible I&D. 10/17/2019-patient admitted with right thigh cellulitis presently on cefepime and vancomycin. Afebrile. WBC within normal limits. Blood pressure stable. Blood cultures are pending. CT of the right lower leg negative for osteo-. Plan is to continue antibiotic therapy at this time. (2) Obesity Qualifiers: Body mass index: BMI 34.0-34.9 Is this a current diagnosis for this admission?: Yes Plan: BMI 34.6. Will obtain TSH, hemoglobin A1c and lipid panel. Diet and lifestyle modification recommended. (3) Tobacco abuse Is this a current diagnosis for this admission?: Yes Plan: Counseled on quitting. NicoDerm patch will be provided. (4) Anxiety Is this a current diagnosis for this admission?: Yes Plan: Takes Xanax at home. Resume home meds. Outpatient PCP follow-up. - Time Anticipated Discharge Disposition: Home, Self Care Anticipated Discharge Timeframe: within 72 hours
[2019-10-17] MEDS: NORMAL SALINE 1000 ML 1,000 ML IV PRN ×2 (09:44→23:08)
[2019-10-17] MEDS: VANCOMYCIN HCL 1,250 MG in DEXTROSE 5%-WATER 250 ML IV SCH ×2 (10:58→23:59)
--- NOTE | 2019-10-17 11:18 | EKG REPORT ---
SEVERITY:- OTHERWISE NORMAL ECG - SINUS TACHYCARDIA : Confirmed by: Юлия Bhagat MD 17-Oct-2019 11:17:03
[2019-10-17] MEDS: NICOTINE 14 MG/24 HR PATCH.TD24 TD PRN (14:14)
[2019-10-17] MEDS: MORPHINE SULFATE 10 MG/ML INJ IV PRN (23:59)
[2019-10-18] MEDS: ALPRAZOLAM 0.25 MG TABLET PO PRN (00:37)
[2019-10-18] MEDS: HEPARIN SOD (PORCINE) 5,000 UNIT/ML 1 ML VIAL SUBCUT SCH ×3 (06:23→21:09)
[2019-10-18] MEDS: OXYCODONE-ACETAMINOPHEN 5-325 MG TABLET PO PRN ×2 (07:54→18:16)
[2019-10-18] MEDS: FAMOTIDINE 20 MG TABLET PO SCH ×2 (09:38→21:08)
[2019-10-18] MEDS: GABAPENTIN 300 MG CAPSULE PO SCH ×3 (09:38→17:48)
[2019-10-18] MEDS: ALPRAZOLAM 0.5 MG TABLET PO SCH ×2 (09:38→17:48)
[2019-10-18] MEDS: CEFEPIME 1 GM/D5W RTU 1 GM/50 ML RTUPB IV SCH ×2 (09:39→21:08)
[2019-10-18] MEDS ORDERED: TRIAMCINOLONE ACETONIDE 15 GM TP SCH (10:00)
[2019-10-18] MEDS ORDERED: NALOXONE HCL SL SCH (10:00)
[2019-10-18] MEDS ORDERED: [UNRECOGNIZED DRUG - OTHER] SL SCH (10:00)
[2019-10-18] MEDS ORDERED: BUPRENORPHINE HCL SL SCH (10:00)
--- NOTE | 2019-10-18 10:00 | PDOC PROGRESS REPORT ---
Subjective Progress Note for:: 10/18/19 Subjective:: 44 year old female with no significant past medical history except for tobacco abuse anxiety and obesity presenting to ED complaining of left lower extremity erythema and swelling. Last surgery patient noticed what she thought was an ingrown hair on the anterior surface of her proximal medial thigh she "missed with it" and the following day noted worsening erythema and swelling, she reported to [facility] where she was given an IM antibiotic shot, was sent home o n oral antibiotics, and symptoms of antibiotic lotion, patient noted that her leg was getting worse and she was developing fever nausea, hence she presented to ED. Pain explained as burning, 5/5, constant, mild relieved with ibuprofen and Tylenol at home. Patient denies any history of diabetes, IV drug abuse, trauma, previous abscess or cellulitis. 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 In the ED she was noted to febrile, tachycardic, with elevated lactic acid and CT did not show any osteomyelitis, gas formation or abscess. Hospitalist was consulted for admission. 10/17/1937-89-lrln-old female admitted with cellulitis of the right thigh. And is on cefepime, vancomycin. Vancomycin dose will be adjusted by the pharmacy. Patient is afebrile. WBC count within normal limits. 10/18/[id number]-ider-old female admitted for a left inner thigh cellulitis. Improving. Blood cultures are negative so far. To continue IV cefepime and v ancomycin at this time. Blood pressure stable to discontinue IV fluids from today. Reason For Visit: ACUTE CELLULITIS Physical Exam Vital Signs: Temp Pulse Resp BP Pulse Ox 98.4 F 91 15 128/66 H 93 10/18/19 08:00 10/18/19 09:44 10/18/19 09:44 10/18/19 07:42 10/18/19 09:44 Intake & Output 10/17/19 10/18/19 10/19/19 06:59 06:59 06:59 Intake Total 2170 2340 1000 Output Total 300 Balance 1870 2340 1000 Weight 98.9 kg 99.5 kg General appearance: PRESENT: no acute distress, cooperative, morbidly obese Head exam: PRESENT: atraumatic Eye exam: PRESENT: PERRLA Ear exam: PRESENT: normal external ear exam Teeth exam: PRESENT: poor dentation Neck exam: ABSENT: carotid bruit, JVD, lymphadenopathy, thyromegaly Respiratory exam: PRESENT: decreased breath sounds Cardiovascular exam: PRESENT: RRR. ABSENT: diastolic murmur, rubs, systolic murmur GI/Abdominal exam: PRESENT: normal bowel sounds, soft. ABSENT: distended, guarding, mass, organolmegaly, rebound, tenderness Rectal exam: PRESENT: deferred Extremities exam: PRESENT: full ROM. ABSENT: calf tenderness, clubbing, pedal edema Neurological exam: PRESENT: alert, awake, oriented to person, oriented to place, oriented to time, oriented to situation, CN II-XII grossly intact. ABSENT: motor sensory deficit Skin exam: PRESENT: other - Erythema redness and swelling of the right inner thigh is improving. Results Laboratory Results: 10/17/19 03:08 10/17/19 03:08 10/16/19 20:33 Creatine Kinase 528 H Impressions: Chest X-Ray 10/16/19 20:04 IMPRESSION: No acute disease. copyright 2011 [employer]- All Rights Reserved Lower Extremity CT 10/16/19 21:12 IMPRESSION: 1. Diffuse soft tissue swelling overlying the right femur but without evidence of abscess or foreign body. 2. No acute fracture or osteomyelitis of the right femur. Assessment and Plan - Diagnosis (1) Cellulitis of right lower extremity Is this a current diagnosis for this admission?: Yes Plan: Right proximal lower extremity diffuse cellulitis and possibly abscess based on physical examination. Failed outpatient antibiotic therapy. Denies any history of trauma, IV drug abuse or diabetes. Given history of obesity diabetes is a possibility. CT right lower extremity negative for any gas collection, osteomyelitis or abscess. We will start on empiric IV antibiotics blood culture, wound culture, wound care, if no improvement will consult surgery for possible I&D. 10/17/2019-patient admitted with right thigh cellulitis presently on cefepime and vancomycin. Afebrile. WBC within normal limits. Blood pressure stable. Blood cultures are pending. CT of the right lower leg negative for osteo-. Plan is to continue antibiotic therapy at this time. 10/18/2019-patient admitted with a right inner thigh cellulitis. Improving. Blood cultures are negative. Plan is to continue IV cefepime and IV vancomycin at this time. (2) Obesity Qualifiers: Body mass index: BMI 34.0-34.9 Is this a current diagnosis for this admission?: Yes Plan: BMI 34.6. Will obtain TSH, hemoglobin A1c and lipid panel. Diet and lifestyle modification recommended. (3) Tobacco abuse Is this a current diagnosis for this admission?: Yes Plan: Counseled on quitting. NicoDerm patch will be provided. (4) Anxiety Is this a current diagnosis for this admission?: Yes Plan: Takes Xanax at home. Resume home meds. Outpatient PCP follow-up. - Time Anticipated Discharge Disposition: Home, Self Care Anticipated Discharge Timeframe: within 48 hours
[2019-10-18] MEDS: VANCOMYCIN HCL 1,250 MG in DEXTROSE 5%-WATER 250 ML IV SCH ×2 (11:18→23:00)
[2019-10-18] MEDS: TRIAMCINOLONE ACETONIDE 0.1% OINT 15 GM TP SCH ×2 (15:09→21:24)
[2019-10-18] MEDS: NICOTINE 14 MG/24 HR PATCH.TD24 TD PRN (18:16)
[2019-10-19] MEDS: OXYCODONE-ACETAMINOPHEN 5-325 MG TABLET PO PRN ×3 (04:56→18:20)
[2019-10-19] MEDS: TRIAMCINOLONE ACETONIDE 0.1% OINT 15 GM TP SCH ×3 (05:04→21:24)
[2019-10-19] MEDS: HEPARIN SOD (PORCINE) 5,000 UNIT/ML 1 ML VIAL SUBCUT SCH ×3 (05:05→21:23)
[2019-10-19 06:02] LABS: ABSOLUTE BASOPHILS # (AUTO) 0.1 10^3/uL (0.0-0.2); ABSOLUTE EOSINOPHILS # (AUTO) 0.3 10^3/uL (0.0-0.6); ABSOLUTE LYMPHOCYTES (AUTO) 2.3 10^3/uL (0.5-4.7); ABSOLUTE MONOCYTES (AUTO) 1.5 10^3/uL (0.1-1.4); ABSOLUTE NEUT (AUTO) 7.3 10^3/uL (1.7-8.2); BASOPHILS % (AUTO) 0.5 % (0-2); EOSINOPHILS % (AUTO) 2.9 % (0-6); HEMATOCRIT 27.5 % (36.0-47.0); HEMOGLOBIN 9.1 g/dL (12.0-15.5); LYMPHOCYTES % (AUTO) 19.9 % (13-45); MEAN CORPUSCULAR HEMOGLOBIN 26.8 pg (27.0-33.4); MEAN CORPUSCULAR HGB CONC 33.2 g/dL (32.0-36.0); MEAN CORPUSCULAR VOLUME 81 fl (80-97); MONOCYTES % (AUTO) 12.8 % (3-13); PLATELET COUNT 312 10^3/uL (150-450); RED CELL DISTRIBUTION WIDTH 17.2 % (11.5-14.0); SEGMENTED NEUTROPHILS % (AUTO) 63.9 % (42-78); TOTAL CELLS COUNTED % (AUTO) 100 %; WHITE BLOOD COUNT 11.4 10^3/uL (4.0-10.5)
[2019-10-19 06:27] LABS: ALBUMIN 2.9 g/dL (3.5-5.0); ALKALINE PHOSPHATASE 72 U/L (38-126); ANION GAP 7 (5-19); ASPARTATE AMINO TRANSFERASE 57 U/L (14-36); BILIRUBIN,DIRECT 0.3 mg/dL (0.0-0.4); BILIRUBIN,TOTAL 0.3 mg/dL (0.2-1.3); BLOOD UREA NITROGEN 13 mg/dL (7-20); CALCIUM 8.6 mg/dL (8.4-10.2); CARBON DIOXIDE 27 mmol/L (22-30); CHLORIDE 104 mmol/L (98-107); GLUCOSE 126 mg/dL (75-110); POTASSIUM 4.5 mmol/L (3.6-5.0); TOTAL PROTEIN 5.7 g/dL (6.3-8.2)
[2019-10-19] MEDS: ALPRAZOLAM 0.5 MG TABLET PO SCH ×2 (10:25→18:19)
[2019-10-19] MEDS: FAMOTIDINE 20 MG TABLET PO SCH ×2 (10:25→21:24)
[2019-10-19] MEDS: GABAPENTIN 300 MG CAPSULE PO SCH ×3 (10:25→18:19)
[2019-10-19] MEDS: CEFEPIME 1 GM/D5W RTU 1 GM/50 ML RTUPB IV SCH ×2 (10:26→21:24)
--- NOTE | 2019-10-19 10:52 | PDOC PROGRESS REPORT ---
Subjective Progress Note for:: 10/19/19 Subjective:: 44 year old female with no significant past medical history except for tobacco abuse anxiety and obesity presenting to ED complaining of left lower extremity erythema and swelling. Last surgery patient noticed what she thought was an ingrown hair on the anterior surface of her proximal medial thigh she "missed with it" and the following day noted worsening erythema and swelling, she reported to [facility] where she was given an IM antibiotic shot, was sent home o n oral antibiotics, and symptoms of antibiotic lotion, patient noted that her leg was getting worse and she was developing fever nausea, hence she presented to ED. Pain explained as burning, 5/5, constant, mild relieved with ibuprofen and Tylenol at home. Patient denies any history of diabetes, IV drug abuse, trauma, previous abscess or cellulitis. 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 In the ED she was noted to febrile, tachycardic, with elevated lactic acid and CT did not show any osteomyelitis, gas formation or abscess. Hospitalist was consulted for admission. 10/17/1992-32-xptl-old female admitted with cellulitis of the right thigh. And is on cefepime, vancomycin. Vancomycin dose will be adjusted by the pharmacy. Patient is afebrile. WBC count within normal limits. 10/[id number]-zlap-old female admitted for a rt inner thigh cellulitis. Improving. Blood cultures are negative so far. To continue IV cefepime and van comycin at this time. Blood pressure stable to discontinue IV fluids from today. 10/19/[id number]-qild-old female admitted with right upper thigh cellulitis, erythema is improving on palpation the swelling is hard in consistency decayed of underlying abscess. Consultation with surgical team is requested. Plan is to continue IV cefepime and vancomycin at this time. Reason For Visit: ACUTE CELLULITIS Physical Exam Vital Signs: Temp Pulse Resp BP Pulse Ox 97.7 F 83 15 118/63 97 10/19/19 09:00 10/19/19 08:19 10/19/19 08:19 10/19/19 08:19 10/19/19 08:19 Intake & Output 10/18/19 10/19/19 10/20/19 06:59 06:59 06:59 Intake Total 2340 2550 Balance 2340 2550 Weight 99.5 kg 99.5 kg General appearance: PRESENT: no acute distress, obese Head exam: PRESENT: atraumatic Eye exam: PRESENT: PERRLA Ear exam: PRESENT: normal external ear exam Mouth exam: PRESENT: neck supple Teeth exam: PRESENT: poor dentation Neck exam: ABSENT: carotid bruit, JVD, lymphadenopathy, thyromegaly Respiratory exam: PRESENT: decreased breath sounds Cardiovascular exam: PRESENT: RRR. ABSENT: diastolic murmur, rubs, systolic murmur GI/Abdominal exam: PRESENT: normal bowel sounds, soft. ABSENT: distended, guarding, mass, organolmegaly, rebound, tenderness Rectal exam: PRESENT: deferred Extremities exam: PRESENT: full ROM. ABSENT: calf tenderness, clubbing, pedal edema Neurological exam: PRESENT: alert, awake, oriented to person, oriented to place, oriented to time, oriented to situation, CN II-XII grossly intact. ABSENT: motor sensory deficit Psychiatric exam: PRESENT: appropriate affect, normal mood. ABSENT: homicidal ideation, suicidal ideation Skin exam: PRESENT: other - Right upper thigh examination shows improvement in erythema swelling but there is a high very likely presence of underlying skin abscess. Results Laboratory Results: 10/19/19 05:23 10/19/19 05:23 10/19/19 10/19/19 05:23 05:23 WBC 11.4 H RBC 3.40 L Hgb 9.1 L Hct 27.5 L MCV 81 MCH 26.8 L MCHC 33.2 RDW 17.2 H Plt Count 312 Seg Neutrophils % 63.9 Sodium 138.3 Potassium 4.5 Chloride 104 Carbon Dioxide 27 Anion Gap 7 BUN 13 Creatinine 0.70 Est GFR ( Amer) > 60 Glucose 126 H Calcium 8.6 Total Bilirubin 0.3 AST 57 H Alkaline Phosphatase 72 Total Protein 5.7 L Albumin 2.9 L 10/16/19 20:33 Creatine Kinase 528 H Impressions: Chest X-Ray 10/16/19 20:04 IMPRESSION: No acute disease. copyright 2011 [employer]- All Rights Reserved Lower Extremity CT 10/16/19 21:12 IMPRESSION: 1. Diffuse soft tissue swelling overlying the right femur but without evidence of abscess or foreign body. 2. No acute fracture or osteomyelitis of the right femur. Assessment and Plan - Diagnosis (1) Cellulitis of right lower extremity Is this a current diagnosis for this admission?: Yes Plan: Right proximal lower extremity diffuse cellulitis and possibly abscess based on physical examination. Failed outpatient antibiotic therapy. Denies any history of trauma, IV drug abuse or diabetes. Given history of obesity diabetes is a possibility. CT right lower extremity negative for any gas collection, osteomyelitis or abscess. We will start on empiric IV antibiotics blood culture, wound culture, wound care, if no improvement will consult surgery for possible I&D. 10/17/2019-patient admitted with right thigh cellulitis presently on cefepime and vancomycin. Afebrile. WBC within normal limits. Blood pressure stable. Blood cultures are pending. CT of the right lower leg negative for osteo-. Plan is to continue antibiotic therapy at this time. 10/18/2019-patient admitted with a right inner thigh cellulitis. Improving. Blood cultures are negative. Plan is to continue IV cefepime and IV vancomycin at this time. 10/19/2019-patient admitted with right inner thigh cellulitis with a probable underlying abscess. Surgical consult was requested. Plan is to continue IV cefepime and IV vancomycin at this time. (2) Obesity Qualifiers: Body mass index: BMI 34.0-34.9 Is this a current diagnosis for this admission?: Yes Plan: BMI 34.6. Will obtain TSH, hemoglobin A1c and lipid panel. Diet and lifestyle modification recommended. (3) Tobacco abuse Is this a current diagnosis for this admission?: Yes Plan: Counseled on quitting. NicoDerm patch will be provided. (4) Anxiety Is this a current diagnosis for this admission?: Yes Plan: Takes Xanax at home. Resume home meds. Outpatient PCP follow-up. - Time Anticipated Discharge Disposition: Home, Self Care Anticipated Discharge Timeframe: within 48 hours
[2019-10-19 11:42] LABS: VANCOMYCIN,TROUGH 7.9 ug/mL (5.0-20.0)
--- NOTE | 2019-10-19 13:09 | PDOC CONSULTATION ---
Consultation Consult Date: 10/19/19 Attending physician:: TANNA CAMPBELL Provider Consulted: ANIL MOURA Consult reason:: Right proximal anterior thigh abscess History of Present Illness Admission Date/PCP: 10/16/19 23:16 ILEANA HERNANDEZ PA-C History of Present Illness: JIA CHAN is a 44 year old female Presents emergency department via ground rescue complaining of right groin pain, swelling, redness. Patient was admitted to the hospital service ago for right groin-anterior thigh cellulitis. She was started on empiric antibiotics, with improvement in symptoms and physical exam findings. On admission she had a CT scan of the right leg which demonstrated no definable abscess, only cellulitis and edema of the right anterior thigh soft tissue. The patient was found to have necrotic skin overlying the area of maximum redness and swelling, and increased white blood cell count to 11,000. Surgery was consulted. Patient was evaluated and felt to require surgical intervention. Past Medical History Past Medical History: Obesity, hypertension, smoking abuse, pain management, steroid use Cardiac Medical History: Reports: Hypertension Psychiatric Medical History: Denies: Depression Past Surgical History Past Surgical History: Reports: Cholecystectomy Social History Information Source: Patient Smoking Status: Current Every Day Smoker Cigarettes Packs Per Day: 1 Electronic Cigarette use?: No Frequency of Alcohol Use: None Hx Recreational Drug Use: No Drugs: None Hx Prescription Drug Abuse: No Family History Family History: None, Reviewed & Not Pertinent, Hypertension Parental Family History Reviewed: No Children Family History Reviewed: No Sibling(s) Family History Reviewed.: No Medication/Allergy Home Medications: Alprazolam [Xanax 0.5 mg Tablet] 0.5 mg PO BID 10/17/19 Buprenorphine HCl/Naloxone HCl [Suboxone 8 mg-2 mg Sl Film] 2.5 film SL DAILY 10/17/19 Dextroamphetamine/Amphetamine [Adderall 10 mg Tablet] 10 mg PO BID 10/17/19 Gabapentin [Neurontin] 600 mg PO TID 10/17/19 Ondansetron HCl [Zofran 8 mg Tablet] 8 mg PO BID 10/17/19 Sulfamethoxazole/Trimethoprim [Septra-Ds 800-160 mg Tablet] 1 tab PO BID 10/17/19 Triamcinolone Acetonide [Aristocort 0.1% Ointment 15 gm] 1 applic TP TID 10/18/19 Allergies/Adverse Reactions: No Known Allergies Allergy (Verified 03/27/18 19:06) Review of Systems Constitutional: PRESENT: as per HPI Eyes: ABSENT: visual disturbances Ears: ABSENT: hearing changes Cardiovascular: ABSENT: chest pain, dyspnea on exertion, edema, orthropnea, palpitations Respiratory: PRESENT: other - Chronic shortness of breath Integumentary: PRESENT: as per HPI Neurological: ABSENT: abnormal gait, abnormal speech, confusion, dizziness, focal weakness, syncope Psychiatric: PRESENT: anxiety Physical Exam Vital Signs: Temp Pulse Resp BP Pulse Ox 97.7 F 83 15 118/63 97 10/19/19 09:00 10/19/19 08:19 10/19/19 08:19 10/19/19 08:19 10/19/19 08:19 Intake & Output 10/18/19 10/19/19 10/20/19 06:59 06:59 06:59 Intake Total 2340 2550 50 Balance 2340 2550 50 Weight 99.5 kg 99.5 kg General appearance: PRESENT: mild distress Head exam: PRESENT: normocephalic Eye exam: PRESENT: EOMI Mouth exam: PRESENT: dry mucosa Neck exam: PRESENT: full ROM Respiratory exam: PRESENT: rhonchi Cardiovascular exam: PRESENT: RRR Pulses: PRESENT: normal carotid pulses, normal radial pulses, normal femoral pulses GI/Abdominal exam: PRESENT: soft Rectal exam: PRESENT: deferred Extremities exam: PRESENT: other - Decreased range of motion Neurological exam: PRESENT: alert, altered, oriented to person, oriented to place, oriented to time, oriented to situation Psychiatric exam: PRESENT: appropriate affect Skin exam: PRESENT: other - Right groin examined. There is marked cellulitic changes including erythema, edema, and tenderness with overlying necrotic ulcerated areas along the skin fold distal to the inguinal crease. The area is very tender. Bedside ultrasonography demonstrates marked edema. Results Laboratory Results: 10/19/19 05:23 10/19/19 10:45 10/19/19 10/19/19 10/19/19 05:23 05:23 10:45 WBC 11.4 H RBC 3.40 L Hgb 9.1 L Hct 27.5 L MCV 81 MCH 26.8 L MCHC 33.2 RDW 17.2 H Plt Count 312 Seg Neutrophils % 63.9 Sodium 138.3 Potassium 4.5 Chloride 104 Carbon Dioxide 27 Anion Gap 7 BUN 13 Creatinine 0.70 0.58 Est GFR ( Amer) > 60 > 60 Glucose 126 H Calcium 8.6 Total Bilirubin 0.3 AST 57 H Alkaline Phosphatase 72 Total Protein 5.7 L Albumin 2.9 L 10/16/19 20:33 Creatine Kinase 528 H Impressions: Chest X-Ray 10/16/19 20:04 IMPRESSION: No acute disease. copyright 2010 [employer]- All Rights Reserved Lower Extremity CT 10/16/19 21:12 IMPRESSION: 1. Diffuse soft tissue swelling overlying the right femur but without evidence of abscess or foreign body. 2. No acute fracture or osteomyelitis of the right femur. Assessment & Plan - Diagnosis (1) Cellulitis of right lower extremity Is this a current diagnosis for this admission?: Yes Plan: Impression: Acute cellulitis of the right groin, now progressing to abscess despite IV antibiotic therapy for 72 hours. Patient needs operative drainage Recommendations: 1. Keep n.p.o., IV fluids, IV antibiotics 2. Check COVID-19 status 3. Take patient to the operating room under general anesthesia for wide debridement, possible drain placement, possible packing; explained to the patient that this will be healing by secondary intention over a next 8 weeks. Somewhat anxious but in agreement to proceed. 4. I have discussed the above with the hospitalist. (2) Anxiety Is this a current diagnosis for this admission?: Yes (3) Obesity Qualifiers: Body mass index: BMI 34.0-34.9 Is this a current diagnosis for this admission?: Yes (4) Tobacco abuse Is this a current diagnosis for this admission?: Yes - Time Time Spent: 30 to 50 Minutes Smoking Cessation Education: over 10 minutes Medications reviewed and adjusted accordingly: Yes Anticipated discharge: Home Anticipated DC Timeframe: within 72 hours
[2019-10-19] MEDS: VANCOMYCIN HCL 1,250 MG in DEXTROSE 5%-WATER 250 ML IV SCH ×2 (13:17→21:24)
[2019-10-19] MEDS ORDERED: ONDANSETRON HCL INJ/PF 4 MG/2 ML SDV ONE (15:46)
[2019-10-19] MEDS ORDERED: MIDAZOLAM 2 MG/2 ML INJ ONE (15:46)
[2019-10-19] MEDS ORDERED: FENTANYL CITRATE INJ/PF 100 MCG/2 ML AMPUL ONE (15:46)
[2019-10-19] MEDS ORDERED: PROPOFOL INJ 200 MG/20 ML VIAL IV ONE (15:46)
[2019-10-19] MEDS ORDERED: KETOROLAC TROMETHAMINE 60 MG/2 ML SDV ONE (15:46)
[2019-10-19] MEDS ORDERED: ONDANSETRON HCL INJ/PF 4 MG/2 ML SDV IV PRN (16:37)
[2019-10-19] MEDS ORDERED: MORPHINE SULFATE 10 MG/ML INJ IV PRN (16:37)
[2019-10-19] MEDS ORDERED: FENTANYL CITRATE INJ/PF 100 MCG/2 ML AMPUL IV PRN ×3 (16:37)
[2019-10-19] MEDS ORDERED: OXYCODONE-ACETAMINOPHEN 5-325 MG TABLET PO PRN ×2 (16:37)
[2019-10-19] MEDS ORDERED: DIPHENHYDRAMINE HCL 50 MG/ML VIAL IV PRN (16:37)
[2019-10-19] MEDS ORDERED: MEPERIDINE HCL/PF INJ 25 MG/1 ML DISP.SYRIN IV PRN (16:37)
[2019-10-19] MEDS ORDERED: PROMETHAZINE HCL INJ 25 MG/1 ML VIAL IV PRN ×2 (16:37)
--- NOTE | 2019-10-19 17:03 | Operative Report ---
Operative Report DATE OF SURGERY: 10/19/19 PREOPERATIVE DIAGNOSIS: 1. Extensive soft tissue infection right proximal thig h. 2. Smoking abuse. 3. Obesity POSTOPERATIVE DIAGNOSIS: Same with extensive rest, panniculitis, and superficial fasciitis OPERATION: 1. Extensive debridement of right anterior thigh skin, subcutaneous tissue, superficial fascia. 2. Lateral and medial counterincisions with half- inch loop [place] drain placement SURGEON: ANIL MOURA ANESTHESIA: GA TISSUE REMOVED OR ALTERED: Nonviable skin, subcutaneous tissue and superficial fascia COMPLICATIONS: None INTRAOPERATIVE FINDINGS: See below PROCEDURE: The patient was taken to the preop holding area to the main operating room where general anesthesia was induced via LMA. White catheter inserted, patient frog- leg. The right groin, and anterior proximal thigh prepped and draped with Betadine Surgical plan surgical timeout conducted. Findings were significant for nonviable skin in a splotchy ulcerative pattern extending over an area of approximately 5 x 15 cm. A large ellipse of skin encompassing this pathology was excised with a #10 blade. We immediately got into pockets of panniculitis, with pus. Material sent for Gram stain culture and sensitivity. The next 15 minutes were spent breaking up loculations superiorly, laterally and medially. 2 counterincisions were made in relation to this diagonally oriented excisional debridement, 1 medially approximately 6 cm from the primary debridement site and 1 laterally and superiorly approximately 6 cm from the debridement site. 2 large 1/2 inch [place] drains were placed in the loop fascia between the principal debridement site and the counterincisions and tied in knots. We now debrided the subcutaneous infected tissue with electrocautery and scissors. Couple lobules of fat comprising a volume of approximately 5 x 5 x 8 cm was debrided from the target wound. The superficial fascia and extension of Jm's was excisionally debrided. We did not get into the territory of the saphenous vein. We stayed below the inguinal crease. We now irrigated the wound with 6 L of pulse lavage saline. Bleeders were cauterized as encountered. Additional nonviable skin trimmed with scissors. I felt the operation was complete. Sponge and needle counts are correct. The wound was packed with 2 Betadine soaked Kerlix rolls that were unfolded and packed into the wound for both hemostasis and antimicrobial effect. The 2 Kerlix rolls were tied to each other in a knot. 4 x 4's ABD pads applied. Patient tolerated the procedure well, extubated, taken to the recovery room stable condition.
[2019-10-19] MEDS: MORPHINE SULFATE 10 MG/ML INJ ONE ×2 (17:10→17:15)
[2019-10-19] MEDS: MORPHINE SULFATE 10 MG/ML INJ IV PRN (21:36)
[2019-10-20] MEDS: TRIAMCINOLONE ACETONIDE 0.1% OINT 15 GM TP SCH ×3 (05:00→22:13)
[2019-10-20] MEDS: VANCOMYCIN HCL 1,250 MG in DEXTROSE 5%-WATER 250 ML IV SCH ×3 (05:03→22:07)
[2019-10-20] MEDS: HEPARIN SOD (PORCINE) 5,000 UNIT/ML 1 ML VIAL SUBCUT SCH ×3 (05:04→22:05)
[2019-10-20] MEDS: MORPHINE SULFATE 10 MG/ML INJ IV PRN ×2 (06:57→22:04)
[2019-10-20] MEDS ORDERED: MORPHINE SULFATE 10 MG/ML INJ ONE (10:25)
[2019-10-20] MEDS: GABAPENTIN 300 MG CAPSULE PO SCH ×3 (10:28→17:24)
[2019-10-20] MEDS: FAMOTIDINE 20 MG TABLET PO SCH ×2 (10:29→22:05)
[2019-10-20] MEDS: OXYCODONE-ACETAMINOPHEN 5-325 MG TABLET PO PRN (10:29)
[2019-10-20] MEDS: ALPRAZOLAM 0.5 MG TABLET PO SCH ×2 (10:29→17:24)
[2019-10-20] MEDS ORDERED: MORPHINE SULFATE 10 MG/ML INJ IV ONE (13:00)
--- NOTE | 2019-10-20 13:01 | PDOC PROGRESS REPORT ---
Subjective Progress Note for:: 10/20/19 Subjective:: Pains right upper thigh I&D site. Reason For Visit: ACUTE CELLULITIS Physical Exam Vital Signs: Temp Pulse Resp BP Pulse Ox 99.7 F 93 19 140/75 H 93 10/20/19 07:39 10/20/19 07:39 10/20/19 07:39 10/20/19 07:39 10/20/19 07:39 Intake & Output 10/19/19 10/20/19 10/21/19 06:59 06:59 06:59 Intake Total 2550 2955 250 Output Total 720 Balance 2550 2235 250 Weight 99.5 kg 102.9 kg Exam: Packing removed and ranch rider wet-to-dry packing placed. There is no drainage. However there is still extensive erythema on the skin areas. Results Laboratory Results: 10/19/19 05:23 10/19/19 10:45 10/16/19 20:33 Creatine Kinase 528 H Impressions: Chest X-Ray 10/16/19 20:04 IMPRESSION: No acute disease. copyright 2011 [employer]- All Rights Reserved Lower Extremity CT 10/16/19 21:12 IMPRESSION: 1. Diffuse soft tissue swelling overlying the right femur but without evidence of abscess or foreign body. 2. No acute fracture or osteomyelitis of the right femur. Assessment & Plan - Time Critical Time spent with patient: 15-24 minutes Anticipated Discharge Disposition: Home with Home Health Anticipated Discharge Timeframe: within 72 hours - Inpatient Certification Medical Necessity: Need for Pain Control, Need for IV Antibiotics - Plan Summary Plan Summary: Continue with the wet-to-dry dressings every 12 hours. Possible placement of wound VAC in the next 48 to 72 hours
[2019-10-20] MEDS: CEFEPIME 1 GM/D5W RTU 1 GM/50 ML RTUPB IV SCH ×2 (14:40→22:07)
[2019-10-20] MEDS ORDERED: LIDOCAINE 1% INJ-PF (10 MG/ML) 30 ML SDV ONE (20:27)
[2019-10-21] MEDS ORDERED: PHARMACY COMMUNICATION ORDER MC ONE (05:30)
[2019-10-21] MEDS: HEPARIN SOD (PORCINE) 5,000 UNIT/ML 1 ML VIAL SUBCUT SCH ×3 (06:19→22:25)
[2019-10-21] MEDS: TRIAMCINOLONE ACETONIDE 0.1% OINT 15 GM TP SCH ×3 (06:19→22:26)
[2019-10-21] MEDS: VANCOMYCIN HCL 1,250 MG in DEXTROSE 5%-WATER 250 ML IV SCH ×3 (06:51→23:00)
[2019-10-21 07:31] LABS: VANCOMYCIN,TROUGH 15.5 ug/mL (5.0-20.0)
[2019-10-21] MEDS: OXYCODONE-ACETAMINOPHEN 5-325 MG TABLET PO PRN ×2 (08:12→17:27)
--- NOTE | 2019-10-21 10:52 | PDOC PROGRESS REPORT ---
Subjective Progress Note for:: 10/21/19 Subjective:: Less pains along the right upper thigh I&D site Reason For Visit: CELLULITIS Physical Exam Vital Signs: Temp Pulse Resp BP Pulse Ox 97.9 F 83 17 127/66 H 100 10/21/19 08:19 10/21/19 08:06 10/21/19 08:06 10/21/19 08:06 10/21/19 08:06 Intake & Output 10/20/19 10/21/19 10/22/19 06:59 06:59 06:59 Intake Total 2955 2095 Output Total 720 200 Balance 2235 1895 Weight 102.9 kg 103.6 kg Exam: IND site on the right thigh appears to have less inflammation. We will check the wound when the packing is changed this morning. She might eventually need wound VAC in the next 24 to 48 hours. This can be continued at home and be followed at the wound care center. Results Laboratory Results: 10/19/19 05:23 10/21/19 06:48 10/21/19 06:48 Creatinine 0.55 Est GFR ( Amer) > 60 10/19/19 16:25 Groin - Abscess Gram Stain - Final 10/19/19 16:25 Groin - Abscess Wound Culture - Final Mrsa (Meth Resis Staph Aureus) No Anaerobic Organisms 10/16/19 20:33 Creatine Kinase 528 H Impressions: Chest X-Ray 10/16/19 20:04 IMPRESSION: No acute disease. copyright 2010 [employer]- All Rights Reserved Lower Extremity CT 10/16/19 21:12 IMPRESSION: 1. Diffuse soft tissue swelling overlying the right femur but without evidence of abscess or foreign body. 2. No acute fracture or osteomyelitis of the right femur. Assessment & Plan - Diagnosis (2) Obesity Qualifiers: Body mass index: BMI 34.0-34.9 - Time Critical Time spent with patient: 15-24 minutes Anticipated Discharge Disposition: Home, Self Care Anticipated Discharge Timeframe: within 72 hours - Inpatient Certification Medical Necessity: Need for IV Antibiotics - Plan Summary Plan Summary: 44-year-old female 2 days post I&D of large abscess of the right upper thigh. We are changing the packing every 12 hours. The wound will be reevaluated today as far as starting wound VAC hopefully in the next 24 to 48 hours. She will need wound VAC continued at home and follow-up at the wound care center in about 1 to 2 weeks.
[2019-10-21] MEDS: GABAPENTIN 300 MG CAPSULE PO SCH ×3 (11:05→17:19)
[2019-10-21] MEDS: CEFEPIME 1 GM/D5W RTU 1 GM/50 ML RTUPB IV SCH ×2 (11:05→22:25)
[2019-10-21] MEDS: FAMOTIDINE 20 MG TABLET PO SCH ×2 (11:05→22:25)
[2019-10-21] MEDS: ALPRAZOLAM 0.5 MG TABLET PO SCH ×2 (11:05→17:19)
[2019-10-21] MEDS: MORPHINE SULFATE 10 MG/ML INJ IV PRN ×2 (13:06→21:32)
--- NOTE | 2019-10-21 17:12 | PDOC PROGRESS REPORT ---
Subjective Subjective:: Patient managed for right groin cellulitis with abscess status post I&D by general surgery. Started on cefepime/vancomycin. Abscess cultures grew MRSA and patient states she has had MRSA infections in the past. She states she got this infection from shaving her leg and cut a small bump in her skin with a razor. General surgery has been following and they are recommending a wound VAC at discharge. She will need follow-up with wound care clinic and home health for dressing changes. She can be likely discharged on Zyvox for MRSA coverage. Infectious disease has been consulted and we await their input on choice /duration of antibiotics. Reason For Visit: CELLULITIS Physical Exam Vital Signs: Temp Pulse Resp BP Pulse Ox 97.9 F 83 17 127/66 H 100 10/21/19 08:19 10/21/19 08:06 10/21/19 08:06 10/21/19 08:06 10/21/19 08:06 Intake & Output 10/20/19 10/21/19 10/22/19 06:59 06:59 06:59 Intake Total 2955 2095 550 Output Total 720 200 Balance 2235 1895 550 Weight 102.9 kg 103.6 kg General appearance: PRESENT: no acute distress, morbidly obese, well-developed, well-nourished Head exam: PRESENT: atraumatic, normocephalic Eye exam: PRESENT: conjunctiva pink. ABSENT: scleral icterus Mouth exam: PRESENT: moist Respiratory exam: PRESENT: clear to auscultation shakira. ABSENT: rales, rhonchi, wheezes Cardiovascular exam: PRESENT: RRR. ABSENT: diastolic murmur, rubs, systolic murmur GI/Abdominal exam: PRESENT: normal bowel sounds, soft. ABSENT: distended, guarding, mass, organolmegaly, rebound, tenderness Extremities exam: PRESENT: other - Right groin surgical wounds, healing Neurological exam: PRESENT: alert, awake, oriented to person, oriented to place, oriented to time, oriented to situation Psychiatric exam: PRESENT: appropriate affect, normal mood Skin exam: PRESENT: dry, warm Results Laboratory Results: 10/19/19 05:23 10/21/19 06:48 10/21/19 06:48 Creatinine 0.55 Est GFR ( Amer) > 60 10/19/19 16:25 Groin - Abscess Gram Stain - Final 10/19/19 16:25 Groin - Abscess Wound Culture - Final Mrsa (Meth Resis Staph Aureus) No Anaerobic Organisms 10/16/19 20:33 Creatine Kinase 528 H Impressions: Chest X-Ray 10/16/19 20:04 IMPRESSION: No acute disease. copyright 2010 [employer]- All Rights Reserved Lower Extremity CT 10/16/19 21:12 IMPRESSION: 1. Diffuse soft tissue swelling overlying the right femur but without evidence of abscess or foreign body. 2. No acute fracture or osteomyelitis of the right femur. Assessment and Plan - Diagnosis (1) Cellulitis of right lower extremity Is this a current diagnosis for this admission?: Yes Plan: Per previous physician: "Right proximal lower extremity diffuse cellulitis and possibly abscess based on physical examination. Failed outpatient antibiotic therapy. Denies any history of trauma, IV drug abuse or diabetes. Given history of obesity diabetes is a possibility. CT right lower extremity negative for any gas collection, osteomyelitis or abscess. We will start on empiric IV antibiotics blood culture, wound culture, wound care, if no improvement will consult surgery for possible I&D. 10/17/2019-patient admitted with right thigh cellulitis presently on cefepime and vancomycin. Afebrile. WBC within normal limits. Blood pressure stable. Blood cultures are pending. CT of the right lower leg negative for osteo-. Plan is to continue antibiotic therapy at this time. 10/18/2019-patient admitted with a right inner thigh cellulitis. Improving. Blood cultures are negative. Plan is to continue IV cefepime and IV vancomycin at this time. 10/19/2019-patient admitted with right inner thigh cellulitis with a probable underlying abscess. Surgical consult was requested. Plan is to continue IV cefepime and IV vancomycin at this time." 10/21/2019 Wound cultures growing MRSA, blood cultures negative General surgery considering wound VAC which will be continued at home Needs wound consult outpatient as well as home health for dressing changes ID consulted, suspect patient may need Zyvox for a few weeks (2) Anxiety Is this a current diagnosis for this admission?: Yes (3) Cellulitis due to MRSA Is this a current diagnosis for this admission?: Yes (4) Obesity Qualifiers: Body mass index: BMI 34.0-34.9 Is this a current diagnosis for this admission?: Yes (5) Tobacco abuse Is this a current diagnosis for this admission?: Yes Plan: She must stop smoking for her wounds to heal properly - Time Time Spent with patient: 15-24 minutes Medications reviewed and adjusted accordingly: Yes Anticipated Discharge Disposition: Home with Home Health Anticipated Discharge Timeframe: within 48 hours - Inpatient Certification Based on my medical assessment, after consideration of the patient's comorbidities, presenting symptoms, or acuity I expect that the services needed warrant INPATIENT care.: Yes I certify that my determination is in accordance with my understanding of Medicare's requirements for reasonable and necessary INPATIENT services [42 CFR 412.3e].: Yes Medical Necessity: Significant Comorbidiites Make Outpatient Treatment Too Risky, Need Close Monitoring Due to Risk of Patient Decompensation, Need for IV Antibiotics, Risk of Complication if Not Cared For in Hospital, Risk of Diagnosis Which Will Require Inpatient Eval/Care/Monitoring
[2019-10-21] MEDS: NICOTINE 14 MG/24 HR PATCH.TD24 TD PRN (23:13)
[2019-10-22] MEDS: VANCOMYCIN HCL 1,250 MG in DEXTROSE 5%-WATER 250 ML IV SCH (05:46)
[2019-10-22] MEDS: HEPARIN SOD (PORCINE) 5,000 UNIT/ML 1 ML VIAL SUBCUT SCH ×2 (05:46→13:37)
[2019-10-22] MEDS: TRIAMCINOLONE ACETONIDE 0.1% OINT 15 GM TP SCH ×2 (05:47→13:37)
[2019-10-22 06:02] LABS: VANCOMYCIN,TROUGH 21.1 ug/mL (5.0-20.0)
[2019-10-22 09:03] LABS: HEMATOCRIT 26.2 % (36.0-47.0); HEMOGLOBIN 8.6 g/dL (12.0-15.5); MEAN CORPUSCULAR HEMOGLOBIN 26.9 pg (27.0-33.4); MEAN CORPUSCULAR VOLUME 82 fl (80-97); PLATELET COUNT 364 10^3/uL (150-450); RED BLOOD COUNT 3.21 10^6/uL (3.72-5.28); RED CELL DISTRIBUTION WIDTH 16.8 % (11.5-14.0); WHITE BLOOD COUNT 6.7 10^3/uL (4.0-10.5)
[2019-10-22] MEDS: GABAPENTIN 300 MG CAPSULE PO SCH ×2 (09:03→13:36)
[2019-10-22] MEDS: FAMOTIDINE 20 MG TABLET PO SCH (09:03)
[2019-10-22] MEDS: ALPRAZOLAM 0.5 MG TABLET PO SCH (09:04)
[2019-10-22 09:25] LABS: ANION GAP 5 (5-19); BLOOD UREA NITROGEN 10 mg/dL (7-20); CALCIUM 8.5 mg/dL (8.4-10.2); CARBON DIOXIDE 32 mmol/L (22-30); CHLORIDE 103 mmol/L (98-107); GLUCOSE 102 mg/dL (75-110); POTASSIUM 4.7 mmol/L (3.6-5.0)
[2019-10-22 09:28] LABS: ABSOLUTE LYMPHOCYTES# (MANUAL) 1.4 10^3/uL (0.5-4.7); ABSOLUTE MONOCYTES # (MANUAL) 0.4 10^3/uL (0.1-1.4); BAND NEUTROPHILS % (MANUAL) 5 % (3-5); BASOPHILS % (MANUAL) 0 % (0-2); EOSINOPHILS % (MANUAL) 2 % (0-6); LYMPHOCYTES % (MANUAL) 21 % (13-45); MONOCYTES % (MANUAL) 6 % (3-13); SEGMENTED NEUTROPHILS % (MAN) 66 % (42-78); TOTAL CELLS COUNTED 100
[2019-10-22 09:29] LABS: ANISOCYTOSIS 1+; OVALOCYTES 2+; PLATELET COMMENT ADEQUATE
[2019-10-22] MEDS: CEFEPIME 1 GM/D5W RTU 1 GM/50 ML RTUPB IV SCH (11:00)
[2019-10-22] MEDS: MORPHINE SULFATE 10 MG/ML INJ IV PRN (13:43)
[2019-10-22 17:15] VITALS: BP 115/59
[2019-10-22] MEDS ORDERED: VANCOMYCIN HCL 1,000 MG in DEXTROSE 5%-WATER 250 ML IV SCH (18:00)
--- NOTE | 2019-10-22 18:55 | PDOC DISCHARGE SUMMARY ---
Impression - Admit/DC Date/PCP Admission Date/Primary Care Provider: 10/20/19 15:57 ILEANA HERNANDEZ PA-C Discharge Date: 10/22/19 - Discharge Diagnosis (1) Cellulitis of right lower extremity Is this a current diagnosis for this admission?: Yes (2) Anxiety Is this a current diagnosis for this admission?: Yes (3) Cellulitis due to MRSA Is this a current diagnosis for this admission?: Yes (4) Obesity Is this a current diagnosis for this admission?: Yes (5) Tobacco abuse Is this a current diagnosis for this admission?: Yes - Additional Information Discharge Diet: As Tolerated, Regular Discharge Activity: Activity As Tolerated, Balance Activity w/Rest Referrals: [facility] [Provider Group] - 10/24/19 8:45 am (With Iliana) WOUND CARE [Outside] - 11/04/19 9:15 am BRITTANY BAILEY NP [NO LOCAL MD] - 11/03/19 1:15 pm (Please call [phone] to check in for appointment.) Prescriptions: Nicotine [Nicoderm 14 mg/24 Hr Transdermal Patch] 1 each TD DAILYP PRN #30 patch.td24 PRN Reason: Linezolid [Zyvox 600 mg Tablet] 600 mg PO Q12 12 Days #24 tablet Home Medications: Alprazolam [Xanax 0.5 mg Tablet] 0.5 mg PO BID 10/17/19 Buprenorphine HCl/Naloxone HCl [Suboxone 8 mg-2 mg Sl Film] 2.5 film SL DAILY 10/17/19 Dextroamphetamine/Amphetamine [Adderall 10 mg Tablet] 10 mg PO BID 10/17/19 Gabapentin [Neurontin] 600 mg PO TID 10/17/19 Ondansetron HCl [Zofran 8 mg Tablet] 8 mg PO BID 10/17/19 Triamcinolone Acetonide [Aristocort 0.1% Ointment] 1 applic TP TID 10/18/19 Linezolid [Zyvox 600 mg Tablet] 600 mg PO Q12 12 Days #24 tablet 10/22/19 Nicotine [Nicoderm 14 mg/24 Hr Transdermal Patch] 1 each TD DAILYP PRN #30 patch.td24 10/22/19 History of Present Illiness History of Present Illness: Per Admitting Physician: "JIA CHAN is a 44 year old female with no significant past medical history except for tobacco abuse anxiety and obesity presenting to ED complaining of left lower extremity erythema and swelling. Last surgery patient noticed what she thought was an ingrown hair on the anterior surface of her proximal medial thigh she "missed with it" and the following day noted worsening erythema and swelling, she reported to [facility] where she was given an IM antibiotic shot, was sent home on oral antibiotics, and symptoms of antibiotic lotion, patient noted that her leg was getting worse and she was developing fever nausea, hence she presented to ED. Pain explained as burning, 5/5, constant, mild relieved with ibuprofen and Tylenol at home. Patient denies any history of diabetes, IV drug abuse, trauma, previous abscess or cellulitis. 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 In the ED she was noted to febrile, tachycardic, with elevated lactic acid and CT did not show any osteomyelitis, gas formation or abscess. Hospitalist was consulted for admission. " Hospital Course Hospital Course: Patient managed for right groin cellulitis with abscess, underwent I&D, cultures grew MRSA from wound, blood cultures negative, transition to Zyvox outpatient for a total of 14 days after I&D. - Diagnosis (1) Cellulitis of right lower extremity Is this a current diagnosis for this admission?: Yes Plan: Per previous physician: "Right proximal lower extremity diffuse cellulitis and possibly abscess based on physical examination. Failed outpatient antibiotic therapy. Denies any history of trauma, IV drug abuse or diabetes. Given history of obesity diabetes is a possibility. CT right lower extremity negative for any gas collection, osteomyelitis or abscess. We will start on empiric IV antibiotics blood culture, wound culture, wound care, if no improvement will consult surgery for possible I&D. 10/17/2019-patient admitted with right thigh cellulitis presently on cefepime and vancomycin. Afebrile. WBC within normal limits. Blood pressure stable. Blood cultures are pending. CT of the right lower leg negative for osteo-. Plan is to continue antibiotic therapy at this time. 10/18/2019-patient admitted with a right inner thigh cellulitis. Improving. Blood cultures are negative. Plan is to continue IV cefepime and IV vancomycin at this time. 10/19/2019-patient admitted with right inner thigh cellulitis with a probable underlying abscess. Surgical consult was requested. Plan is to continue IV cefepime and IV vancomycin at this time." Wound cultures growing MRSA, blood cultures negative General surgery considering wound VAC which will be continued at home, they ultimately decided against this and patient seemed to be uncomfortable with the prospect of a wound VAC and we discussed that Needs wound consult outpatient as well as home health for dressing changes ID consulted, stated patient can be given Zyvox for total of 2 weeks from the date of her most recent I&D, total of 12 days at discharge (2) Anxiety Is this a current diagnosis for this admission?: Yes (3) Cellulitis due to MRSA Is this a current diagnosis for this admission?: Yes (4) Obesity Qualifiers: Body mass index: BMI 34.0-34.9 Is this a current diagnosis for this admission?: Yes (5) Tobacco abuse Is this a current diagnosis for this admission?: Yes Plan: She must stop smoking for her wounds to heal properly Physical Exam Vital Signs: Temp Pulse Resp BP Pulse Ox 97.8 F 97 17 115/59 L 100 10/22/19 17:14 10/22/19 17:14 10/22/19 17:14 10/22/19 17:14 10/22/19 17:14 Intake & Output 10/21/19 10/22/19 10/23/19 06:59 06:59 06:59 Intake Total 2095 850 700 Output Total 200 Balance 1895 850 700 Weight 103.6 kg 103.6 kg 104 kg Exam: General appearance: PRESENT: no acute distress, morbidly obese, well-developed, well-nourished, states she very much wants to go home today Head exam: PRESENT: atraumatic, normocephalic Eye exam: PRESENT: conjunctiva pink. ABSENT: scleral icterus Mouth exam: PRESENT: moist Respiratory exam: PRESENT: clear to auscultation shakira. ABSENT: rales, rhonchi, wheezes Cardiovascular exam: PRESENT: RRR. ABSENT: diastolic murmur, rubs, systolic murmur GI/Abdominal exam: PRESENT: normal bowel sounds, soft. ABSENT: distended, guarding, mass, organolmegaly, rebound, tenderness Extremities exam: PRESENT: other - Right groin surgical wounds, healing, no significant drainage Neurological exam: PRESENT: alert, awake, oriented to person, oriented to place, oriented to time, oriented to situation Psychiatric exam: PRESENT: appropriate affect, normal mood Skin exam: PRESENT: dry, warm Results Laboratory Results: WBC 6.7 10^3/uL (4.0-10.5) 10/22/19 05:30 RBC 3.21 10^6/uL (3.72-5.28) L 10/22/19 05:30 Hgb 8.6 g/dL (12.0-15.5) L 10/22/19 05:30 Hct 26.2 % (36.0-47.0) L 10/22/19 05:30 MCV 82 fl (80-97) 10/22/19 05:30 MCH 26.9 pg (27.0-33.4) L 10/22/19 05:30 MCHC 33.0 g/dL (32.0-36.0) 10/22/19 05:30 RDW 16.8 % (11.5-14.0) H 10/22/19 05:30 Plt Count 364 10^3/uL (150-450) 10/22/19 05:30 Lymph % (Auto) Not Reportable 10/22/19 05:30 Valley % (Auto) Not Reportable 10/22/19 05:30 Eos % (Auto) Not Reportable 10/22/19 05:30 Baso % (Auto) Not Reportable 10/22/19 05:30 Absolute Neuts (auto) Not Reportable 10/22/19 05:30 Absolute Lymphs (auto) Not Reportable 10/22/19 05:30 Absolute Monos (auto) Not Reportable 10/22/19 05:30 Absolute Eos (auto) Not Reportable 10/22/19 05:30 Absolute Basos (auto) Not Reportable 10/22/19 05:30 Total Counted 100 10/22/19 05:30 Seg Neutrophils % Not Reportable 10/22/19 05:30 Seg Neuts % (Manual) 66 % (42-78) 10/22/19 05:30 Band Neutrophils % 5 % (3-5) 10/22/19 05:30 Lymphocytes % (Manual) 21 % (13-45) 10/22/19 05:30 Monocytes % (Manual) 6 % (3-13) 10/22/19 05:30 Eosinophils % (Manual) 2 % (0-6) 10/22/19 05:30 Basophils % (Manual) 0 % (0-2) 10/22/19 05:30 Abs Neuts (Manual) 4.8 10^3/uL (1.7-8.2) 10/22/19 05:30 Abs Lymphs (Manual) 1.4 10^3/uL (0.5-4.7) 10/22/19 05:30 Abs Monocytes (Manual) 0.4 10^3/uL (0.1-1.4) 10/22/19 05:30 Absolute Eos (Manual) 0.1 10^3/uL (0.0-0.6) 10/22/19 05:30 Abs Basophils (Manual) 0.0 10^3/uL (0.0-0.2) 10/22/19 05:30 Platelet Comment ADEQUATE 10/22/19 05:30 Anisocytosis 1+ 10/22/19 05:30 Ovalocytes 2+ 10/22/19 05:30 ESR 92 mm/hr (0-20) H 10/16/19 20:33 PT 15.1 SEC (11.4-15.4) 10/17/19 03:08 INR 1.17 10/17/19 03:08 VBG pH 7.37 (7.30-7.42) 10/16/19 20:33 VBG pCO2 49.2 mmHg (35-63) 10/16/19 20:33 VBG HCO3 28.0 mmol/L (20-32) 10/16/19 20:33 VBG Base Excess 1.9 mmol/L 10/16/19 20:33 Sodium 139.9 mmol/L (137-145) 10/22/19 05:30 Potassium 4.7 mmol/L (3.6-5.0) 10/22/19 05:30 Chloride 103 mmol/L (98-107) 10/22/19 05:30 Carbon Dioxide 32 mmol/L (22-30) H 10/22/19 05:30 Anion Gap 5 (5-19) 10/22/19 05:30 BUN 10 mg/dL (7-20) 10/22/19 05:30 Creatinine 0.62 mg/dL (0.52-1.25) 10/22/19 05:30 Creatinine 0.62 mg/dL (0.52-1.25) 10/22/19 05:30 Est GFR ( Amer) > 60 (>60) 10/22/19 05:30 Est GFR ( Amer) > 60 (>60) 10/22/19 05:30 Est GFR (MDRD) Non-Af > 60 (>60) 10/22/19 05:30 Est GFR (MDRD) Non-Af > 60 (>60) 10/22/19 05:30 Glucose 102 mg/dL (75-110) 10/22/19 05:30 Hemoglobin A1c % 5.6 % (4.7-6.0) 10/16/19 20:33 Lactic Acid 1.2 mmol/L (0.7-2.1) 10/17/19 03:08 Calcium 8.5 mg/dL (8.4-10.2) 10/22/19 05:30 Magnesium 2.1 mg/dL (1.6-2.3) 10/18/19 09:37 Total Bilirubin 0.3 mg/dL (0.2-1.3) 10/19/19 05:23 Direct Bilirubin 0.3 mg/dL (0.0-0.4) 10/19/19 05:23 Neonat Total Bilirubin Not Reportable 10/19/19 05:23 Neonat Direct Bilirubin Not Reportable 10/19/19 05:23 Neonat Indirect Bili Not Reportable 10/19/19 05:23 AST 57 U/L (14-36) H 10/19/19 05:23 ALT 83 U/L (<35) H 10/19/19 05:23 Alkaline Phosphatase 72 U/L (38-126) 10/19/19 05:23 Creatine Kinase 528 U/L (30-135) H 10/16/19 20:33 C-Reactive Protein 385.3 mg/L (<10.0) H 10/16/19 20:33 Total Protein 5.7 g/dL (6.3-8.2) L 10/19/19 05:23 Albumin 2.9 g/dL (3.5-5.0) L 10/19/19 05:23 TSH 4.67 uIU/mL (0.47-4.68) 10/17/19 03:08 Free T4 0.94 ng/dL (0.78-2.19) 10/17/19 03:08 Free T3 pg/mL 2.65 pg/mL (2.77-5.27) L 10/17/19 03:08 Serum HCG, Qual NEGATIVE (NEGATIVE) 10/16/19 20:33 Urine Color YELLOW 10/17/19 03:18 Urine Appearance CLEAR 10/17/19 03:18 Urine pH 7.0 (5.0-9.0) 10/17/19 03:18 Ur Specific Joiner 1.019 10/17/19 03:18 Urine Protein NEGATIVE mg/dL (NEGATIVE) 10/17/19 03:18 Urine Glucose (UA) NEGATIVE mg/dL (NEGATIVE) 10/17/19 03:18 Urine Ketones NEGATIVE mg/dL (NEGATIVE) 10/17/19 03:18 Urine Blood NEGATIVE (NEGATIVE) 10/17/19 03:18 Urine Nitrite (Reflex) NEGATIVE (NEGATIVE) 10/17/19 03:18 Urine Bilirubin NEGATIVE (NEGATIVE) 10/17/19 03:18 Urine Urobilinogen NEGATIVE mg/dL (<2.0) 10/17/19 03:18 Leukocyte Esterase Rfl NEGATIVE (NEGATIVE) 10/17/19 03:18 Urine RBC RARE /HPF 10/17/19 03:18 Urine WBC RARE /HPF 10/17/19 03:18 Ur Squamous Epith Cells FEW /HPF 10/17/19 03:18 Urine Bacteria TRACE /HPF 10/17/19 03:18 Urine Ascorbic Acid NEGATIVE (NEGATIVE) 10/17/19 03:18 Time Trough Drawn 0530 10/22/19 05:30 Vancomycin Trough 21.1 ug/mL (5.0-20.0) H 10/22/19 05:30 SARS-CoV-2 (PCR) NEGATIVE (NEGATIVE) 10/19/19 13:15 Impressions: Chest X-Ray 10/16/19 20:04 IMPRESSION: No acute disease. copyright 2011 [employer]- All Rights Reserved Lower Extremity CT 10/16/19 21:12 IMPRESSION: 1. Diffuse soft tissue swelling overlying the right femur but without evidence of abscess or foreign body. 2. No acute fracture or osteomyelitis of the right femur. Plan Plan of Treatment: Follow-up with PCP Follow-up with general surgery Stop smoking Finish antibiotic course Time Spent: Greater than 30 Minutes Stroke Is this a Stroke Patient?: No Acute Heart Failure - Is this a Heart Failure Patient?: No
--- NOTE | 2019-10-23 07:25 | Progress Note ---
Provider Note Provider Note: [facility] ID Telephone Advice Consultation Chart reviewed and case discussed with Dr. Abbott with recommendations prior to discharge. Patient is a 44-year-old woman with obesity and chronic smoking who was admitted on 10/15 due to right thigh redness, swelling and pain. She visited the Ed and she received antibiotic IM (ceftriaxone?) and was sent home on bactrim DS. Her symptoms did not improve fro which she came to the hospital. She was found with mild leukocytosis, slightly elevated lactic acid, CT scan of the leg showed soft tissue swelling surrounding the femur but no abscess nor bone changes. ESR was 92 and CRP 385. She was evaluated by surgery on 10/18 and taken to the OR same day for I&D. She had extensive debridement of the soft tissue and superficial fascia of the anterior right thigh. Surgery planing on placing a wound vac and to continue local wound care at wound clinic. Blood cultures on 10/15 negative. Abscess culture on 10/18 grew MRSA. ID consulted for recommendations. Allergies: No Known Allergies Allergy (Verified 03/27/18 19:06) Medications: Alprazolam [Xanax 0.5 mg Tablet] 0.5 mg PO BID 10/17/19 Buprenorphine HCl/Naloxone HCl [Suboxone 8 mg-2 mg Sl Film] 2.5 film SL DAILY 10/17/19 Dextroamphetamine/Amphetamine [Adderall 10 mg Tablet] 10 mg PO BID 10/17/19 Gabapentin [Neurontin] 600 mg PO TID 10/17/19 Ondansetron HCl [Zofran 8 mg Tablet] 8 mg PO BID 10/17/19 Triamcinolone Acetonide [Aristocort 0.1% Ointment] 1 applic TP TID 10/18/19 Vital SIgns: Temp Pulse Resp BP Pulse Ox 97.8 F 97 17 115/59 L 100 10/22/19 17:14 10/22/19 17:14 10/22/19 17:14 10/22/19 17:14 10/22/19 17:14 Intake & Output 10/22/19 10/23/19 10/24/19 06:59 06:59 06:59 Intake Total 850 1050 Balance 850 1050 Weight 103.6 kg 104 kg Weight/Height Weight 104 kg Height 5 ft 6 in Laboratories: 10/22/19 05:30 10/22/19 05:30 MCV 82 fl (80-97) 10/22/19 05:30 MCH 26.9 pg (27.0-33.4) L 10/22/19 05:30 MCHC 33.0 g/dL (32.0-36.0) 10/22/19 05:30 RDW 16.8 % (11.5-14.0) H 10/22/19 05:30 Seg Neutrophils % Not Reportable 10/22/19 05:30 VBG pH 7.37 (7.30-7.42) 10/16/19 20:33 VBG pCO2 49.2 mmHg (35-63) 10/16/19 20:33 VBG HCO3 28.0 mmol/L (20-32) 10/16/19 20: VBG Base Excess 1.9 mmol/L 10/16/19 20: Chloride 103 mmol/L (98-107) 10/22/19 05:30 Carbon Dioxide 32 mmol/L (22-30) H 10/22/19 05:30 Anion Gap 5 (5-19) 10/22/19 05:30 Est GFR ( Amer) > 60 (>60) 10/22/19 05:30 Est GFR ( Amer) > 60 (>60) 10/22/19 05:30 Glucose 102 mg/dL (75-110) 10/22/19 05:30 Lactic Acid 1.2 mmol/L (0.7-2.1) 10/17/19 03:08 Calcium 8.5 mg/dL (8.4-10.2) 10/22/19 05:30 Magnesium 2.1 mg/dL (1.6-2.3) 10/18/19 09:37 Total Bilirubin 0.3 mg/dL (0.2-1.3) 10/19/19 05:23 AST 57 U/L (14-36) H 10/19/19 05:23 Alkaline Phosphatase 72 U/L (38-126) 10/19/19 05:23 C-Reactive Protein 385.3 mg/L (<10.0) H 10/16/19 20:33 Total Protein 5.7 g/dL (6.3-8.2) L 10/19/19 05:23 Albumin 2.9 g/dL (3.5-5.0) L 10/19/19 05:23 TSH 4.67 uIU/mL (0.47-4.68) 10/17/19 03:08 Free T4 0.94 ng/dL (0.78-2.19) 10/17/19 03:08 Free T3 pg/mL 2.65 pg/mL (2.77-5.27) L 10/17/19 03:08 Serum HCG, Qual NEGATIVE (NEGATIVE) 10/16/19 20:33 Urine Color YELLOW 10/17/19 03:18 Urine Appearance CLEAR 10/17/19 03:18 Urine pH 7.0 (5.0-9.0) 10/17/19 03:18 Ur Specific Minto 1.019 10/17/19 03:18 Urine Protein NEGATIVE mg/dL (NEGATIVE) 10/17/19 03:18 Urine Glucose (UA) NEGATIVE mg/dL (NEGATIVE) 10/17/19 03:18 Urine Ketones NEGATIVE mg/dL (NEGATIVE) 10/17/19 03:18 Urine Blood NEGATIVE (NEGATIVE) 10/17/19 03:18 Ur Squamous Epith Cells FEW /HPF 10/17/19 03:18 10/16/19 20:33 Creatine Kinase 528 H Microbiology: Blood cultures 10/15 Negative Abscess culture 10/18 MRSA Radiology: Chest X-Ray 10/16/19 20:04 IMPRESSION: No acute disease. Lower Extremity CT 10/16/19 21:12 IMPRESSION: 1. Diffuse soft tissue swelling overlying the right femur but without evidence of abscess or foreign body. 2. No acute fracture or osteomyelitis of the right femur. Assessment and Recommendations: Patient evaluated for right thigh extensive skin and skin structure infection due to MRSA. She already had adequate source control with surgery and would potentially benefit from wound vac. She is afebrile and HD stable, leukocytosis resolved. Linezolid 600 mg po bid would be an alternative with high bioavailability to treat this infection. No drug-drug interactions when reviewed with pharmacy. This was discussed with primary team. Shila Perez MD [facility] ID [phone]
== END 2019-10-22 18:32 | disposition home health service (06) | DRG 572 ==
LOC: ER 19:24 → EH 23:16 → INTOOBSV 23:16 → 4N 10-17 01:07 → OBSVTOIN 10-20 15:57
PROVIDERS: ADMIT Internal Medicine; ATTEND Internal Medicine
PROC: 0JBL0ZZ Excision of Right Upper Leg Subcutaneous Tissue and Fascia, Open Approach (ICD-10-PCS; principal; 2019-10-19 15:00)
DX: L03.115 Cellulitis of right lower limb (principal); B95.62 Methicillin resistant Staphylococcus aureus infection as the cause of diseases classified elsewhere; M79.3 Panniculitis, unspecified; M72.9 Fibroblastic disorder, unspecified; I10 Essential (primary) hypertension; F41.9 Anxiety disorder, unspecified; F17.210 Nicotine dependence, cigarettes, uncomplicated; E66.9 Obesity, unspecified; Z68.34 Body mass index [BMI] 34.0-34.9, adult; Z11.59 Encounter for screening for other viral diseases
CPT/HCPCS: 00400; 36415; 71045; 80048; 80053; 80202; 81001; 82550; 82565; 82803; 83036; 83605; 83735; 84439; 84443; 84481; 84703; 85025; 85027; 85610; 85652; 86140; 87040; 87070; 87075; 87077; 87186; 87205; 87635; 93005; 93010; 96365; 96375; 99140; 99285; C9803; G0378; J0692; J1644; J1885; J2250; J2270; J2405; J2704; J3010; J3370; J3490; J7030; J7060; J7120